=== PATIENT | female | born 1970 | race Caucasian/White ===

== ENCOUNTER 2024-12-22 07:15 | Day surgery (SDC) | payer OTHER ==
[~2024-12-22] VITALS: Ht 167.6 cm; Wt 86.4 kg
[~2024-12-22 07:15] MED LIST: ALLEGRA ALLERGY60 MG PO; ESTRADIOL1 EA10 TD; IBLOOD GLUCOSE TEST STRIP 1 EA TEST VI PRN; LACTATED RINGER'S 1,000 ML IV SCH; LIDOCAINE HCL 1% 5 ML SDV INJ ONE; MIDAZOLAM HCL 5 MG/5 ML VIAL IV PRN; NASONEX17 GM; NORCO 5-325 TA1 EACH PO; PAXIL20 MG PO; SINGULAIR10 MG PO; VALTREX1000 MG PO; fentaNYL citrate 100 MCG/2 ML VIAL IV PRN
[2024-12-22] MEDS ORDERED: CLOBETASOL 0.0560 G1 (07:33)
[2024-12-22 07:41] VITALS: BP 117/58
--- NOTE | 2024-12-22 07:50 | NUR ---
AT HOME 5 MINUTES AWAY, TO BE CALLED.
[2024-12-22] MEDS ORDERED: MIDAZOLAM HCL 5 MG/5 ML VIAL ONE (08:21)
[2024-12-22] MEDS ORDERED: fentaNYL citrate 100 MCG/2 ML VIAL ONE (08:21)
[2024-12-22 10:03] LABS: EOSINOPHILS 3.6 % (0-6); HEMATOCRIT 40.8 % (35.0-50.0); MCH 32.2 (27-36); MCHC 34.4 g/dl (30-36); MCV 93.5 fl (81-99); MONOCYTES 7.4 % (0-12); PLATELET COUNT 213 K/uL (140-440); RBC 4.36 M/ul (4.3-5.7); RDW 12.7 (10.5-15.0)
[2024-12-22 10:06] VITALS: BP 125/59
--- NOTE | 2024-12-22 10:12 | NUR ---
12/22/24 1012 Martha Zuniga 0931 PT ARRIVED IN PACU SLEEPY. ABD SOFT AND PASSING FLATUS. 0945 DR AT BEDSIDE AND LABS DRAWN. 1000 SITTING AT BEDSIDE SIPPING ON WATER. 1010 GETTING DRESSED WITH STAND BY ASSIST.
[2024-12-22 10:18] LABS: ALBUMIN 3.6 g/dL (3.4-5.0); ALBUMIN/GLOBULIN RATIO 1.38 (1.1-2.4); ANION GAP 10.9 (7-21); BILIRUBIN, TOTAL 0.5 mg/dL (0.2-1.0); CALCIUM 8.3 mg/dL (8.5-10.1); CREATININE, SERUM 0.8 mg/dL (0.55-1.02); POTASSIUM 3.9 mmol/L (3.5-5.1); PROTEIN, TOTAL 6.2 g/dL (6.4-8.2)
[2024-12-23 02:55] LABS: CARCINOEMBRYONIC ANTIGEN 7.8 ng/mL (<=3.8)
--- NOTE | 2024-12-23 14:12 | OR ---
[facility] [address], [place] [address] Signed DATE OF OPERATION: 12/22/2024 SURGEON: Zurdo Thakkar MD PREOPERATIVE DIAGNOSIS: Colon screening. POSTOPERATIVE DIAGNOSES: 1. 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 2. Multiple polyps. PROCEDURES: Total colonoscopy to cecum with cold snare polypectomy x3 and cold morcellation polypectomy x6 and biopsy of rectosigmoid neoplasm with application of spot endoscopic tattoo dye and application of clip. ANESTHESIA: Intravenous sedation; fentanyl 100 mcg and Versed 10 mg. INDICATION: This 54-year-old white woman is a patient of Dr. Rito Graves. She is referred for screening colonoscopy on the basis of her age. She has no family history of colon cancer and no current symptoms of bleeding, diarrhea, or constipation. She understands the risk of colonoscopy including but not limited to bleeding, infection, and perforation and wished to proceed. FINDINGS: A probable malignant neoplasm was noted at the rectosigmoid at approximately 10 cm from the anal verge. In addition, there were multiple polyps, one at the rectosigmoid, one in the cecum, two at the hepatic flexure, one in the transverse colon, and one in the right colon. All were excised completely. The neoplasm was biopsied and marked with endoscopic tattoo technique and hemoclip to allow for good visualization on the imaging study. DESCRIPTION OF PROCEDURE: The patient was brought to the surgical endoscopy suite and placed in the lateral decubitus position, given intravenous sedation to the point of slurred speech and nystagmus. Digital rectal examination was normal. An Olympus video colonoscope was passed in the rectum and manipulated throughout the Electronically Signed By: ZURDO THAKKAR MD 12/23/24 1412 PATIENT NAME: MCKAYLA GARCIA OPERATIVE REPORT DATE OF : 74 REPORT #: [id number] PHYSICIAN: ZURDO THAKKAR MD PCP: RITO GRAVES MD REPORT IS CONFIDENTIAL AND NOT TO BE RELEASED WITHOUT AUTHORIZATION [facility] [address], [place] [address] Signed colon ultimately intubating the cecum itself. The ileocecal valve and appendiceal orifice were normal. A small polyp was noted at the cecum, which was excised with cold snare technique. It was withdrawn and passed for pathology. Further withdrawal showed another polyp in the mid ascending colon similarly excised. Withdrawal to the hepatic flexure showed two small polyps, one excised with cold snare technique, the other with cold morcellation technique. Withdrawal showed another small polyp at the transverse colon similarly excised with cold morcellation technique. Further withdrawal showed no sign of diverticular change of the left colon and sigmoid. In the distal sigmoid and rectosigmoid, a small polyp was noted, this was excised with cold morcellation technique. Upon withdrawal to approximately 10 to 12 cm from the anal verge was an ulcerated umbilicated neoplasm though soft, quite likely represents malignancy. Biopsies were taken of this. Additionally, Endo micheal tattoo dye was used to micheal the area anticipating probable neoadjuvant chemoradiation therapy. In addition, a hemoclip was applied to allow for imaging accuracy postoperatively. The scope was removed after retroflexed view was undertaken. Digital rectal examination showed the lesion to be palpable with extreme extension of the finger into the anal canal less reassuring that most likely a sphincter preserving resection can be undertaken at some point. MD MARISA Aj/MODL /[id number] cc: Rito Graves MD Copies: RITO GRAVES MD ~ Electronically Signed By: ZURDO THAKKAR MD 12/23/24 1412 PATIENT NAME: MCKAYLA GARCIA ANN OPERATIVE REPORT DATE OF : 74 REPORT #: [id number] PHYSICIAN: ZURDO THAKKAR MD PCP: RITO GRAVES MD REPORT IS CONFIDENTIAL AND NOT TO BE RELEASED WITHOUT AUTHORIZATION
--- NOTE | 2024-12-25 14:02 | PATH ---
[facility] [address] [place] [address] Signed THIS IS AN ADDENDUM REPORT SPECIMEN(S): A HEPATIC FLEXURE COLON POLYP SPECIMEN(S): B CECUM COLON POLYP SPECIMEN(S): C ASCENDING COLON POLYP SPECIMEN(S): D TRANSVERSE COLON POLYP SPECIMEN(S): E HEPATIC FLEXURE COLON POLYPS SPECIMEN(S): F RECTOSIGMOID POLYP SPECIMEN(S): G COLON BIOPSY AT 10 CM SPECIMEN SOURCE: A. HEPATIC FLEXURE COLON POLYP B. CECUM COLON POLYP C. ASCENDING COLON POLYP D. TRANSVERSE COLON POLYP E. HEPATIC FLEXURE COLON POLYPS F. RECTOSIGMOID POLYP G. COLON BIOPSY AT 10 CM CLINICAL HISTORY: Pre-: Initial screening colonoscopy. Post: Mid rectal cancer, multiple polyps. FINAL PATHOLOGIC DIAGNOSIS: A. Colon, hepatic flexure, polypectomy: - Tubular adenoma B. Cecum, polypectomy: - Tubular adenoma C. Colon, ascending, polypectomy: - Tubular adenoma D. Colon, transverse, polypectomy: - Tubular adenoma E. Colon, hepatic flexure, polypectomies: - Tubular adenomas (2 fragments) F. Colon, rectosigmoid, polypectomy: - Tubular adenoma G. Colon, 10 cm, biopsy: - Moderately differentiated adenocarcinoma, see comment COMMENT: For part G, testing for microsatellite instability by immunohistochemistry has been ordered and will be reported in an addendum. PATIENT NAME: MCKAYLA BOWSER PATHOLOGY DATE OF : 74 REPORT #: [id number] PHYSICIAN: PABLO PATHOLOGY PCP: RITO FOLEY MD REPORT IS CONFIDENTIAL AND NOT TO BE RELEASED WITHOUT AUTHORIZATION [facility] [address] [place], [place] [address] Signed A diagnostic alert is initiated by Dr. Nguyen on 12/24/2024. As part of [facility]' Quality Improvement Program, this case was reviewed by another member of our pathology staff. BRP MICROSCOPIC EXAMINATION: Histologic sections of all submitted blocks are examined by light microscopy. These findings, together with the gross examination, support the pathologic diagnosis. GROSS DESCRIPTION: A. The specimen, labeled and designated "Niels, Katey, hepatic flexure colon polyp," is received in formalin and consists of three caballero soft tissue fragments, ranging from 0.2-0.4 cm. Entirely submitted in (A1). B. The specimen, labeled and designated "Niels, Katey, cecum colon polyp," is received in formalin and consists of one caballero soft tissue fragment, 0.7 cm. Entirely submitted in (B1). C. The specimen, labeled and designated "Katey Bowser, ascending colon polyp," is received in formalin and consists of two caballero soft tissue fragments, ranging from 0.4-0.5 cm. Entirely submitted in (C1). D. The specimen, labeled and designated "Niels, J, transverse colon polyp," is received in formalin and consists of one caballero soft tissue fragment, 0.8 cm. Entirely submitted in (D1). E. The specimen, labeled and designated "Bowser, J, hepatic flexure colon polyps," is received in formalin and consists of two caballero soft tissue fragments, ranging from 0.2-0.3 cm. Entirely submitted in (E1). F. The specimen, labeled and designated "Niels, J, rectosigmoid polyp," is received in formalin and consists of one caballero soft tissue fragment, 0.6 cm. Entirely submitted in (F1). G. The specimen, labeled and designated "Katey Bowser, colon biopsy at 10 cm," is received in formalin and consists of three caballero soft tissue fragments, ranging from 0.2-0.4 cm. Entirely submitted in (G1). AB (under the direct supervision of a pathologist) The Gross Description was prepared using a voice recognition system. The report was reviewed for accuracy; however, sound-alike word errors, addition and/or deletions may occur. If there is any question about this report, please contact Client Services. ADDITIONAL NOTES: PATIENT NAME: MCKAYLA BOWSER PATHOLOGY DATE OF : 74 REPORT #: [id number] PHYSICIAN: PABLO SANCHEZ PCP: RITO FOLEY MD REPORT IS CONFIDENTIAL AND NOT TO BE RELEASED WITHOUT AUTHORIZATION [address] [address] Signed Immunohistochemical and/or in situ hybridization studies if performed in this case included appropriate positive controls that reacted as expected. This test was developed and its performance characteristics determined by [facility]. It has not been cleared or approved by the U.S. Food and Drug Administration. The FDA has determined that such clearance or approval is not necessary. This test is used for clinical purposes. It should not be regarded as investigational or for research. [facility] is certified under the Clinical Laboratory Improvement Amendments of 1988 (CLIA) as qualified to perform high complexity clinical laboratory testing. PERFORMING LABORATORY: Technical component was performed by [facility], [address] [place] [id number] (CLIA# [id number]). Professional interpretation was performed by [address] [address] (CLIA#: [id number]). ADDITIONAL NOTES: Immunohistochemical and/or in situ hybridization studies if performed in this case included appropriate positive controls that reacted as expected. This test was developed and its performance characteristics determined by [facility]. It has not been cleared or approved by the U.S. Food and Drug Administration. The FDA has determined that such clearance or approval is not necessary. This test is used for clinical purposes. It should not be regarded as investigational or for research. [facility] is certified under the Clinical Laboratory Improvement Amendments of 1988 (CLIA) as qualified to perform high complexity clinical laboratory testing. Professional interpretation was performed by [address] [address] (CLIA#: [id number]). REASON FOR ADDENDUM: To add results of additional testing ADDENDUM PATHOLOGIC DIAGNOSIS: Colon and Rectum Biomarker Reporting Template RESULTS Mismatch Repair Immunohistochemistry (IHC) Testing for Mismatch Repair (MMR) Proteins: Background nonneoplastic tissue / internal control with intact nuclear expression PATIENT NAME: MCKAYLA BOWSER PATHOLOGY DATE OF : 74 REPORT #: [id number] PHYSICIAN: PABLO SANCHEZ PCP: RITO FOLEY MD REPORT IS CONFIDENTIAL AND NOT TO BE RELEASED WITHOUT AUTHORIZATION [facility] [address] [place] [id number] Signed MLH1 Result: Intact nuclear expression MSH2 Result: Intact nuclear expression MSH6 Result: Intact nuclear expression PMS2 Result: Intact nuclear expression IHC Interpretation: No loss of nuclear expression of MMR proteins: low probability of MSI-H BRP Diagnostician: Liam Nguyen MD Pathologist Electronically Signed 12/25/2024 Copies: ~ PATIENT NAME: MCKAYLA BOWSER ANN PATHOLOGY DATE OF : 74 REPORT #: [id number] PHYSICIAN: PABLO PATHOLOGY PCP: RITO FOLEY MD REPORT IS CONFIDENTIAL AND NOT TO BE RELEASED WITHOUT AUTHORIZATION
== END 2024-12-22 10:16 | disposition home or self-care (01) ==
LOC: OPS 07:15 → DS 07:16 → OPS 08:30
PROVIDERS: ATTEND Surgery
PROC: 3E0H8KZ Introduction of Other Diagnostic Substance into Lower GI, Via Natural or Artificial Opening Endoscopic (ICD-10-PCS; 2024-12-22)
PROC: 0DBE8ZZ Excision of Large Intestine, Via Natural or Artificial Opening Endoscopic (ICD-10-PCS; principal; 2024-12-22 08:30)
DX: Z12.11 Encounter for screening for malignant neoplasm of colon (principal); D12.7 Benign neoplasm of rectosigmoid junction; D12.2 Benign neoplasm of ascending colon; D12.0 Benign neoplasm of cecum; D12.3 Benign neoplasm of transverse colon; C19 Malignant neoplasm of rectosigmoid junction; Z78.0 Asymptomatic menopausal state; Z90.49 Acquired absence of other specified parts of digestive tract; K21.9 Gastro-esophageal reflux disease without esophagitis; G47.30 Sleep apnea, unspecified; E66.9 Obesity, unspecified; Z68.30 Body mass index [BMI] 30.0-30.9, adult; Z88.1 Allergy status to other antibiotic agents; Z88.5 Allergy status to narcotic agent; Z79.899 Other long term (current) drug therapy
CPT/HCPCS: 36415; 80053; 82378; 85025; 99153; G0500; J2250; J3010; J7121

== ENCOUNTER 2025-01-14 16:40 | Inpatient (IN) | payer OTHER ==
[~2025-01-14] VITALS: Ht 167.6 cm; Wt 84.1 kg
[~2025-01-14 16:40] MED LIST changes: +CLOBETASOL PROP15 G3 TOP; -IBLOOD GLUCOSE TEST STRIP 1 EA TEST VI PRN; -LACTATED RINGER'S 1,000 ML IV SCH; -LIDOCAINE HCL 1% 5 ML SDV INJ ONE; -MIDAZOLAM HCL 5 MG/5 ML VIAL IV PRN; -fentaNYL citrate 100 MCG/2 ML VIAL IV PRN
[2025-01-21] MEDS ORDERED: ALLEGRA ALLERG180 MG PO (08:30)
[2025-01-21 08:37] VITALS: BP 104/62
[2025-01-27] VITALS (7 sets, daily range): BP systolic 102–125; BP diastolic 49–69
[2025-01-27] MEDS ORDERED: LACTATED RINGER'S 1,000 ML IV SCH ×2 (05:00→13:45)
[2025-01-27] MEDS ORDERED: IBLOOD GLUCOSE TEST STRIP 1 EA TEST VI PRN ×2 (07:00→11:30)
[2025-01-27] MEDS ORDERED: HEParin SOD (PORCINE) 5,000 UNIT/ML SDV SUB-Q SCH (07:00)
[2025-01-27] MEDS ORDERED: LIDOCAINE HCL 1% 5 ML SDV INJ ONE (07:00)
[2025-01-27] MEDS ORDERED: CEFAZOLIN SODIUM 2 GM/20 ML SYR IV SCH ×2 (07:00→14:00)
[2025-01-27] MEDS ORDERED: metroNIDAZOLE/SODIUM CHLORIDE 500 MG/100 ML PIGGYBACK IV SCH ×2 (07:00→14:00)
[2025-01-27] MEDS ORDERED: fentaNYL citrate 100 MCG/2 ML VIAL ONE (08:31)
[2025-01-27] MEDS ORDERED: dexmedeTOMIDine HCl 200 MCG/2 ML VIAL ONE (08:32)
[2025-01-27] MEDS ORDERED: DEXAMETHASONE SOD PHOS 4 MG/ML VIAL ONE ×2 (08:32→12:50)
[2025-01-27] MEDS ORDERED: KETAMINE in NS 50 MG/5 ML SYR ONE ×2 (08:32→12:17)
[2025-01-27] MEDS ORDERED: LIDOCAINE HCL 2% 5 ML SDV ONE ×4 (08:32→12:18)
[2025-01-27] MEDS ORDERED: ondansetron HCL 4 MG/2 ML VIAL ONE (08:32)
[2025-01-27] MEDS ORDERED: ROCURONIUM BROMIDE 50 MG/5 ML SYR ONE ×3 (08:32→12:16)
[2025-01-27] MEDS ORDERED: MAGNESIUM SULFATE 1 GM/2 ML VIAL ONE ×2 (08:32→10:18)
[2025-01-27] MEDS ORDERED: propofoL 200 MG/20 ML VIAL ONE (08:32)
[2025-01-27] MEDS ORDERED: ACETAMINOPHEN 1,000 MG/100 ML VIAL ONE (08:33)
[2025-01-27] MEDS ORDERED: SODIUM CHLORIDE 0.9% 40 ML IV ONE ×4 (08:34→12:49)
--- NOTE | 2025-01-27 09:13 | NUR ---
PT TOOK NEOMYACIN 500MG AT 2PM, 7PM AND 11PM YESTERDAY (01/26/25) SHE ALSO TOOK FLAGYL 250MG AT 2PM,7PM AND 11PM YESTERDAY (01/26/25) SHE ALSO DID A BOWEL PREP YESTERDAY (01/26/25)
[2025-01-27] MEDS ORDERED: ePHEDrine sulfate 50 MG/ML AMP ONE (09:51)
[2025-01-27] MEDS ORDERED: HYDROmorphone HCL 1 MG/ML SYR IV PRN (11:30)
[2025-01-27] MEDS ORDERED: ondansetron HCL 4 MG/2 ML VIAL IV PRN ×2 (11:30→13:45)
[2025-01-27] MEDS ORDERED: fentaNYL citrate 50 MCG/ML SDV IV PRN (11:30)
[2025-01-27] MEDS ORDERED: droPERidol 5 MG/2 ML VIAL IV PRN (11:30)
[2025-01-27] MEDS ORDERED: NALOXONE HCL 0.4 MG SYR IV PRN (11:30)
[2025-01-27] MEDS ORDERED: KETOROLAC TROMETHAMINE 30 MG/ML VIAL IV PRN ×2 (11:30→13:45)
[2025-01-27] MEDS ORDERED: Ropivacaine HCl 0.5% 30 ML VIAL ONE (12:49)
[2025-01-27] MEDS ORDERED: SUGAMMADEX SODIUM 200 MG/2 ML ML ONE (12:49)
[2025-01-27] MEDS ORDERED: MORPHINE SULFATE 10 MG/ML VIAL IV PRN (13:45)
[2025-01-27] MEDS ORDERED: FAMOTIDINE 20 MG/ 2 ML VIAL IV SCH (13:48)
--- NOTE | 2025-01-27 14:07 | NUR ---
01/27/25 1407 Sheets,[place] 1334 PT ARRIVED TO PACU ON 6L VIA MASK, PT EYES OPEN LOOKING AROUND ROOM. RESP EVEN AND UNLABORED.
--- NOTE | 2025-01-27 15:14 | NUR ---
Patient to the medical floor. Patient arrived to unit alert and oriented, she is notably drowsy. Patient is on 2L oxygen per nc, sp02 93%. Vital signs are stable. Patient reports tolerable pain. Midline Abdominal dressing noted, drain to LLQ. Patient denies nausea. IV fluids/abx started per order. Patient's at bedside. Patient oriented to room and call light.
--- NOTE | 2025-01-27 15:29 | NUR ---
PATIENT IN BED AT THIS TIME. MITERING MACHINE OPERATOR WENT INTO PATIENTS ROOM FOR HOURLY ROUNDS. CALL LIGHT WITHIN REACH, NO FURTHER NEEDS AT THIS TIME.
[2025-01-27] MEDS ORDERED: SEVOFLURANE 250 ML BTL INH ONE (15:56)
--- NOTE | 2025-01-27 16:04 | NUR ---
Patient resting, easily wakes to verbal stimuli. Patient continues to report tolerable pain. Abdominal dressing unchanged. IV fluids patent. Vitals stable, sp02 93% on 2l per nc.
--- NOTE | 2025-01-27 17:10 | NUR ---
Patient reporting 6/10 abdominal pain. Admin morphine 4mg iv at this time.
--- NOTE | 2025-01-27 17:57 | NUR ---
PATIENT IN BED AT THIS TIME. RUBBER PRINTING MACHINE OPERATOR CHARTED VITALS AND I&O'S. CALL LIGHT WITHIN REACH, NO FURTHER NEEDS AT THIS TIME.
--- NOTE | 2025-01-27 19:30 | NUR ---
REPORT RECEIVED FROM DAY SHIFT RN. PT LYING IN BED ALERT AND ORIENTED. DENIES NEEDS. WHITE BOARD UPDATED. CALL LIGHT IN REACH.
--- NOTE | 2025-01-27 21:53 | NUR ---
EVENING ASSESSMENT COMPLETE. SCHEDULED MEDS ADMIN PER EMAR. PT REPORTS ABD/LOW BACK PAIN 03/10. PRN FOR PAIN ADMIN PER EMAR. PT WITH APPROX 25 ML GREEN EMESIS. PRN FOR N/V GIVEN. MIDLINE ABD DRESSING CDI. BOWEL TONES HYPOACTIVE. PT DENIES FLATUS. CLARICE DRAIN LLQ WITH SEROSANG DRAINAGE. DRESSING CDI. SCD'S/CPOX IN PLACE. 1L/NC IN PLACE. SpO2 MID 90'S. PT DENIES QUESTIONS OR CONCERNS. CALL LIGHT IN REACH.
--- NOTE | 2025-01-27 23:08 | NUR ---
PT RESTING WITH EYES CLOSED. AWAKENS EASILY. PT OOB TO AMB AROUND THE BED AND BACK. BENSON WELL. SMALL AMOUNT SEROSANG DRAINAGE NOTED FROM DRAIN INSERTION SITE. DRESSING REINFORCED. DRAIN TUBING STRIPPED. DRAIN SECURED TO PT GOWN. NO FURTHER NEEDS. CALL LIGHT IN REACH.
--- NOTE | 2025-01-27 23:54 | NUR ---
PT RESTING IN BED WITH EYES CLOSED. RESPIRATIONS EVEN. SpO2 92% ON RA. HR 70'S.
[2025-01-28] VITALS (11 sets, daily range): BP systolic 98–114; BP diastolic 38–54
--- NOTE | 2025-01-28 02:25 | NUR ---
PT RESTING WITH EYES CLOSED. AWAKENS EASILY. VS AND I&O OBTAINED. PT OOB TO AMB AROUND BED AND BACK WITH 1PA. BACK TO BED, BENSON WELL. PT REPORTS ABD/LOW BACK PAIN 01/08. PRN FOR PAIN ADMIN PER EMAR. BOWEL TONES ACTIVE. PT DENIES FLATUS. ABD DRESSING CDI. CPOX IN PLACE. PT ON RA. FRESH CLEAR LIQUIDS PROVIDED. NO FURTHER NEEDS. CALL LIGHT IN REACH.
--- NOTE | 2025-01-28 04:21 | NUR ---
PT RESTING IN BED WITH EYES CLOSED. RESPIRATIONS EVEN. SpO2 96% ON RA. HR 70'S.
[2025-01-28 05:24] LABS: BASOPHILS 0.2 % (0-2); EOSINOPHILS 0.4 % (0-6); HEMATOCRIT 37.5 % (35.0-50.0); LYMPHOCYTES 5.7 % (24-44); MCH 31.6 (27-36); MCHC 34.6 g/dl (30-36); MCV 91.3 fl (81-99); MONOCYTES 5.2 % (0-12); NEUTROPHILS 88.5 % (39-80); PLATELET COUNT 240 K/uL (140-440); RBC 4.11 M/ul (4.3-5.7); RDW 12.8 (10.5-15.0)
[2025-01-28 05:48] LABS: ALBUMIN 3.1 g/dL (3.4-5.0); ALBUMIN/GLOBULIN RATIO 1.15 (1.1-2.4); ANION GAP 11.4 (7-21); BILIRUBIN, TOTAL 0.4 mg/dL (0.2-1.0); BUN/CREATININE RATIO 11.68 (6.0-28.6); CALCIUM 7.8 mg/dL (8.5-10.1); CREATININE, SERUM 0.77 mg/dL (0.55-1.02); POTASSIUM 4.4 mmol/L (3.5-5.1); PROTEIN, TOTAL 5.8 g/dL (6.4-8.2)
[2025-01-28 05:52] LABS: SMEAR REVIEW BLOOD SEE COMMENTS
--- NOTE | 2025-01-28 05:57 | NUR ---
LAB IN FOR MORNING DRAW. VS AND I&O OBTAINED. BARON PATENT WITH QS YELLOW URINE. CLARICE LLQ WITH 8ML SEROSANG DRAINAGE. PRN FOR N/V ADMIN PRIOR TO ABX ADMIN PER PT REQUEST. PT BECAME NAUSEOUS DESPITE PRN. NAUSEA RESOLVED WITHOUT EMESIS. NO C/O PAIN AT THIS TIME. PT DENIES FURTHER NEEDS. CALL LIGHT IN REACH.
--- NOTE | 2025-01-28 07:50 | NUR ---
Patient awake, alert and oriented x4, no acute distress. Patient reports nausea with IV medication admin. Patient reports tolerable pain, 4/10. Abdominal dressing unchanged, CDI. LLQ nader drain closed to suction, serosang drainage.
--- NOTE | 2025-01-28 07:59 | NUR ---
ALERT AND ORIENTED IN BED. SPOUSE AT BEDSIDE. PATIENT DEMOGRAPHICS VERIFIED. LIVES IN HOUSE. 1 STEP TO GET INSIDE. HAS RAILS AROUND TOILET. NO OTHER DME. DRIVES AT BASELINE, SPOUSE WILL PROVIDE TRANSPORT AT ME. DENIES FINANCIAL HARDSHIP AT THIS TIME. PLANS TO RETURN HOME WHEN MEDICALLY CLEARED. DENIES CM NEEDS AT THIS TIME.
--- NOTE | 2025-01-28 09:51 | NUR ---
UR CLINICAL REVIEW: [facility] REVIEW MEET INPT FOR BOWEL RESECTION DUE TO [facility] INPT 01/27/25 @ 9906 ORDER MATCHES REG CLINICAL FAXED TO [facility] FOR AUTH REVIEW DISCHARGE TO HOME WHEN STABLE 01/30/25
--- NOTE | 2025-01-28 09:54 | NUR ---
Patient reports 7/10 abdominal pain. Admin toradol 30mg slow iv push, pt tolerated medication admin well.
--- NOTE | 2025-01-28 10:05 | NUR ---
PATIENT IS IN HER BED AT THIS TIME, REFUSED A WASH CLOTH AND WARM BLANKET, INFORMATION SECURITY RISK ANALYST GOT SOME FRESH ICE WATER AND ICE CHIPS FOR PATIENT. CALL LIGHT WITH IN REACH AND NOTHING ELSE NEEDED AT THIS TIME. PATIENT WANTS TO REST AND IS NOT FEELING VERY WELL.
--- NOTE | 2025-01-28 11:00 | NUR ---
PT NOT AVAILABLE FOR VISIT. PROVIDED PRAYER.
--- NOTE | 2025-01-28 11:03 | NUR ---
PATIENT IN CHAIR AT THIS TIME. THIS HOGSHEAD OPENER WALKED ONE LAP WITH PATIENT, AND MOVED PATIENT TO CHAIR AFTER WALK. CALL LIGHT WITHIN REACH, NO FURTHER NEEDS.
--- NOTE | 2025-01-28 11:03 | OR ---
[facility] [address] [facility] [place], [place] [address] Signed DATE OF OPERATION: 01/27/2025 SURGEON: Zurdo Thakkar MD PREOPERATIVE DIAGNOSES: 1. 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 2. Obesity. POSTOPERATIVE DIAGNOSES: 1. 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 2. Obesity. PROCEDURES: 1. Rigid proctoscopy. 2. Low anterior resection with total mesorectal excision. 3. Side-to-end (Enriquez) coloproctostomy. ANESTHESIA: General endotracheal, Yaniv Gasca, LABELS MOLDER. OYSTER GROWER: Luis Miguel Lazcano RN. INDICATION: This 54-year-old woman is a patient of Dr. Zaid Graves and underwent colonoscopy for screening by me several weeks ago where she was found to have several polyps of the colon. Most importantly an obvious rectal carcinoma approximately 10 cm from the anal verge. Clinically, this was at the limit of index finger examination. A preoperative CEA is elevated at 7.0. CT scan shows no sign of regional or distant metastatic disease and MRI shows no sign of peripelvic fat with suspicious lymph nodes. Under the circumstances of the particular situation, primary low anterior resection without neoadjuvant chemoradiation therapy has been recommended. Micro satellite instability testing is normal. The patient and her understand the risk of bleeding, infection, anastomotic failure, ureteral injury, possibility of local or distant recurrence and need for additional treatment should metastatic disease be found within the peripelvic lymph nodes as well as other unforeseen complications. Understanding this, she wishes to proceed. Electronically Signed By: ZURDO THAKKAR MD 01/28/25 1103 PATIENT NAME: MCKAYLA GARCIA OPERATIVE REPORT DATE OF : 74 REPORT #: [id number] PHYSICIAN: ZURDO THAKKAR MD PCP: RITO GRAVES MD REPORT IS CONFIDENTIAL AND NOT TO BE RELEASED WITHOUT AUTHORIZATION [facility] [address] [place], [place] [address] Signed FINDINGS: There is no sign of ascites or carcinomatosis. The liver was palpably and visibly normal. There was apparent surgical absence of the appendix. There was no evidence of the neoplasm above the peritoneal reflection and endoscopic tattoo marking that confirmed the lesion to be in the anterior right aspect of the rectum as expected. Resection was undertaken beneath the subtle but palpable lesion with a margin of 2 cm initially and additional resection margin of the rectal stump. A side-to-end coloproctostomy was accomplished in a tension-free manner. A total mesorectal excision approach was used including wide resection of the lateral fat as well as the rectal mesentery centrally. A drain was placed in the area of the sacral hollow at conclusion and the sigmoid mesenteric defect secured in the medial aspect. There were no complications and blood loss was 25 mL or so. DESCRIPTION OF PROCEDURE: The patient was brought to the operating room and given a general endotracheal anesthetic. She received full and complete bowel prep including oral antibiotics. Preoperative antibiotic heparin was given subcutaneously as were sequential compression device stockings. The patient was affixed to the table to allow for dropping of the lower aspect to allow for rigid proctoscopy. A nurse assisted elevation of the legs was undertaken. Digital rectal examination performed which was normal and rigid proctoscopy performed. There appeared to be an excellent prep. The lesion including the clip that was placed at the original resection was in place and was approximately 10 cm from the anal verge itself. This seemed higher than I had recalled, but was a most welcome level for the lesion. The legs were placed to the midline. The abdomen was clipped and prepared with a chlorhexidine solution and draped sterilely. An incision was made cephalad to the umbilicus extending to the symphysis pubis. Dissection carried through the thick abdominal wall pannus with sharp electrocautery dissection. The abdomen was entered without problem showing no sign of ascites or carcinomatosis. A Bookwalter retractor was affixed to the table. Palpation of the liver showed no sign of palpable abnormality and it was smooth. There was no sign of carcinomatosis. The omentum was laid on the upper abdomen under moist laparotomy pack and a Bookwalter retractor was affixed to the table allowing for access to the abdomen. Small bowel loops were gathered and packed to the right upper aspect and secured with laparotomy packs more fully. The patient was noted to be slightly hypotensive in the 70s and 80 level and Bookwalter retractor was adjusted showing no appreciable difference. Additional oxygen and some pressor agent was given and throughout the remaining operation, there was no issue with hypotension or hypoxemia. The bowel had been packed to the right side of the abdomen as previously noted. The sigmoid colon was placed on tension and using electrocautery, the white line of Toldt was incised in the distal descending colon and the sigmoid which was relatively redundant. Dissection was carried down to the sacral promontory area. Anteriorly she Electronically Signed By: ZURDO THAKKAR MD 01/28/25 1103 PATIENT NAME: MCKAYLA GARCIA OPERATIVE REPORT DATE OF : 74 REPORT #: [id number] PHYSICIAN: ZURDO THAKKAR MD PCP: RITO GRAVES MD REPORT IS CONFIDENTIAL AND NOT TO BE RELEASED WITHOUT AUTHORIZATION [address], [place] [address] Signed has undergone a hysterectomy. There was some fusion of the upper part of the rectum to the posterior aspect of the bladder and the vaginal cuff. Dissection was carried widely on the pelvic peritoneum on the left side initially identifying the ureter and staying clear of it. Using electrocautery fatty tissue was widely excised medial to the ureter. The ureter was encircled with the yellow vessel loop to keep in mind its position. Dissection was carried inferiorly and then anteriorly and laterally ultimately encountering the bladder cuff and rectal junction. At this point, the actual lesion was not palpable nor was the endoscopic tattoo micheal available for inspection. Dissection was carried into the left lateral pelvic sidewall and anteriorly a bit ultimately identifying some of the blue dye used for endoscopic marking. Dissection of a similar type was carried on the right side, incising the sigmoid mesentery to the sacral promontory and laterally around the pelvic rim. Specific identification at that point was not undertaken of the right ureter that was later identified and well out of harm's way. Dissection was carried laterally on the right side anteriorly to the bladder area. A fibrotic fused plane was noted between the posterior aspect of the bladder and the superior rectum and likely the vaginal cuff inferiorly. Dissection was carried meticulously around on each side and clips were used as necessary, further large vascular stocks laterally. Having that dissected a generous portion of the perirectal fat to maintain a wide resection. Attention was turned towards the sigmoid mesentery itself. This was incised vertically, taken down to the area of the sacral promontory and major vascular pedicle secured with clamps and ligation with 0 silk ties. The sacral hollow was dissected free, maintaining a total mesenteric excision approach and avoiding getting into the venous plexus of the sacrum itself. Dissection was carried posteriorly as far as possible down to the depths of the sacrum. Transection of the junction of the descending and sigmoid colon was undertaken with NICCI stapling device with more proximal colon packed cephalad. This allowed for more meticulous dissection deep into the pelvis. The tattoo micheal from the lesion itself could be identified and perirectal fat staining of dye noted as well. Wide resection was then undertaken anteriorly until the lesion that was soft but palpable identified. It appeared to be in the right anterior aspect. Wide resection was undertaken with a clinically negative margin of at least 2 to 3 cm. The dissection through the fat was taken to the rectal wall itself and a right angle bowel clamp applied. An additional clamp was applied proximally and using prostate scissors the mid rectum was transected transversely. The specimen was passed off the table and opened on the back table and found to have the offending neoplasm within the specimen with a contracted 1 cm distal margin. Margin was available on the rectal stump, it was grasped with a right angle clamp it was noted. The left colon was redundant enough and mobilized enough that no additional freeing from the splenic flexure was required. It laid completely tension free into the depths of the pelvis. The pelvis was isolated with two laparotomy packs and coloproctostomy Electronically Signed By: ZURDO THAKKAR MD 01/28/25 1103 PATIENT NAME: MCKAYLA GARCIA OPERATIVE REPORT DATE OF : 74 REPORT #: [id number] PHYSICIAN: ZURDO THAKKAR MD PCP: RITO GRAVES MD REPORT IS CONFIDENTIAL AND NOT TO BE RELEASED WITHOUT AUTHORIZATION [facility] [address] [place], [place] [address] Signed undertaken in a hand-sewn technique using interrupted 3-0 silk suture. Wide patency of the anastomosis was noted. A red rubber catheter was inserted into the anal canal and was submersion of the anastomosis under saline insufflation undertaken showing no sign of leakage. Isolating laparotomy packs were removed and the gown and gloves changed. Through a left lower quadrant stab incision, a 7 mm flat Anthony drain was placed and insinuated in the presacral space below the depth of the anastomosis itself. Hemostasis was found to be quite complete. Mesenteric defect of the sigmoid was reapproximated with a few interrupted 3-0 silk sutures on the right side without any special attention to the left side, particularly. Irrigation was undertaken with warm saline solution. Drains attached to bulb suction. Attention was then turned toward closure. Midline fascia was reapproximated with running #1 PDS suture in a bidirectional fashion. Subcutaneous tissue was irrigated after securing hemostasis and skin closed with running subcuticular 3-0 Vicryl. Steri-Strips were applied as was an Acticoat dressing. Drains attached to bulb suction. Thereafter, bilateral TAP blocks were performed and ultimately she was extubated and transferred to the recovery room in good condition having suffered no complication. Blood loss was less than 50 mL, more likely 25 mL. Sponge, needle, and instrument counts reported as correct x3. MD MARISA Aj/MODL /[id number] cc: Rito Graves MD Copies: RITO GRAVES MD ~ Electronically Signed By: ZURDO THAKKAR MD 01/28/25 1103 PATIENT NAME: MCKAYLA GARCIA OPERATIVE REPORT DATE OF : 74 REPORT #: [id number] PHYSICIAN: ZURDO THAKKAR MD PCP: RITO GRAVES MD REPORT IS CONFIDENTIAL AND NOT TO BE RELEASED WITHOUT AUTHORIZATION
[2025-01-28] MEDS ORDERED: HYDROmorphone HCL 1 MG/ML SYR IV PRN (11:30)
--- NOTE | 2025-01-28 14:00 | NUR ---
PATIENT IS IN BED AT THIS TIME, [employer] CHARTED VITALS AND I&O'S, IN ROOM, CALL LIGHT WITH IN REACH AND NOTHING ELSE NEEDED AT THIS TIME.
--- NOTE | 2025-01-28 14:26 | NUR ---
Patient reporting nausea and 7/10 abdominal pain. Admin zofran 4mg iv and dilaudid 1mg slow iv push-atient reporting increased nausea post admin. Hob elevated, cool compress provided for comfort. Patient's at bedside.
--- NOTE | 2025-01-28 19:10 | NUR ---
REPORT RECEIVED FROM ESTHELA HAYDEN. pt RESTING IN THE BED. BOARD UPDATED. pt RESQUEST TO GO TO THE BR TO FR[facility]EN. pt ASSISTED TO BR. pt DENIES ANY OTHER NEEDS AT THIS TIME. CALL LIGHT WITHIN REACH.
--- NOTE | 2025-01-28 19:56 | NUR ---
PT BACK IN BED FROM BATHROOM. PT ASSISTED WITH CLEAN GOWN AND VITALS AND I&O OBTAINED AND DOCUMENTED. BARON BAG EMPTIED. PT STATES NO FURTHER NEEDS AT THIS TIME. CALL LIGHT WITHIN REACH.
--- NOTE | 2025-01-28 20:55 | NUR ---
ASSESSMENT DONE. pt RESTING IN THE BED. PRN PAIN AND ANTINAUSEA MEDS ADMINISTERED. pt C/O 5/10 PAIN. pt C/O NAUSEA. SCHEDULED MEDS ADMINISTERED. pt DENIES ANY OTHER NEEDS AT THIS TIME. BARON CARE DONE. BARON EMPTIED. CALL LIGHT WITHIN REACH.
--- NOTE | 2025-01-28 22:59 | NUR ---
pt REASSESSED, pt DENIES ANY PAIN AND NUASEA AT THIS TIME. CALL LIGHT WITHIN REACH. pt DENIES ANY OTHER NEEDS AT THIS TIME. CALL LIGHT WITHIN REACH.
[2025-01-29] VITALS (9 sets, daily range): BP systolic 103–118; BP diastolic 46–62
--- NOTE | 2025-01-29 00:38 | NUR ---
pt RESTING IN THE BED. pt DENIES ANY NEEDS AT THIS TIME. CALL LIGHT WITHIN REACH.
--- NOTE | 2025-01-29 01:55 | NUR ---
IN RM TO HANG NEW BAG OF IVF. pt DENEIS ANY OTHER NEEDS AT THIS TIME. CALL LIGHT WITHIN REACH.
--- NOTE | 2025-01-29 04:26 | NUR ---
pt RESTING IN THE BED WITH EYES CLOSED. RR EVEN AND UNLABORED. CALL LIGHT WITHIN REACH.
--- NOTE | 2025-01-29 06:15 | NUR ---
in room to collect am vs and i&o's for primary rn bella. pump also cleared and room tidied. primary rn in room to administer prn pain/nausea medication. call light in reach.
--- NOTE | 2025-01-29 07:07 | NUR ---
REPORT RECEVIED FROM TRANSPLANTER JACKELYN GAN. PATIENT IS LYING IN BED WITH EYES CLOSED AND RESPIRATIONS ARE EVEN AND UNLABORED. CPOX AT BEDSIDE. CALL LIGHT AND PERSONAL BELONGINGS ARE WITHIN REACH.
--- NOTE | 2025-01-29 08:34 | NUR ---
PATIENT IS LYING IN BED WITH HOB ELEVATED AND SCDs IN PLACE. PATIENT GIVEN IV PEPCID AND REPORTED BASELINE NAUSEA. PATIENT RATES PAIN 2/10 IN ABDOMEN. PATIENT REPORTS FLATULENCE, STILL NO BOWEL MOVEMENT. PATIENT REQUESTED ICE AND AMBULATING IN THE [place]. WE MADE PLANS TO COME BACK LATER THIS MORNING TO HELP HER WALK. PATIENT DENIED FURTHER NEEDS AT THIS TIME. CALL LIGHT AND PERSONAL BELONGINGS ARE WITHIN REACH. LR CONTINUES TO INFUSE.
--- NOTE | 2025-01-29 08:47 | NUR ---
MED REC COMPLETE
--- NOTE | 2025-01-29 09:24 | NUR ---
PATIENT IS AMBULATING IN THE HALLWAY INDEPENDENTLY AT THIS TIME. PATIENT TOLERATING WELL. PATIENT WITH NO COMPLAINTS OF NAUSEA.
[2025-01-29] MEDS ORDERED: OXYCODONE HCL 5 MG TAB PO PRN (09:30)
--- NOTE | 2025-01-29 10:00 | NUR ---
PATIENT IS LYING IN BED WITH HOB ELEVATED AND THE LIGHTS OFF. PATIENT WITH EYES OPEN AND RESPIRATIONS ARE EVEN AND UNLABORED. LIGHTS TURNED ON UPON RN ENTERING THE ROOM. TWO GUESTS ARRIVED AT BEDSIDE TO VISIT THE PATIENT AND THEN LEFT AFTER A FEW MINUTES. FULL ASSESSMENT COMPLETE AND DOCUMENTED IN THE CHART. PATIENT IS ALERT AND ORIENTED TIMES FOUR. LAST BM WAS 01/27/25. PATIENT WITH A BARON CATHETER IN PLACE. LIGHT YELLOW URINE NOTED. JE AND BARON CARE COMPLETE. SCD'S IN PLACE. IV FLUSHED WITH 10 ML NORMAL SALINE. IV DRESSING IS CLEAN, DRY, AND INTACT. LR IS INFUSING AT 85 ML/HR. CARDIAC WITH NORMAL S1 AND S2 ON AUSCULTATION. NO EDEMA NOTED. RADIAL AND PEDAL PULSES ARE STRONG BILATERALLY. CAPILLARY REFILL IN THE UPPER AND LOWER EXTREMITIES IS LESS THAN 3 SECONDS. SENSATION INTACT WITH NO COMPLAINTS OF NUMBNESS OR TINGLING. PATIENT RATED PAIN 2/10 IN THE ABDOMEN BUT IS NOT REQUESTING ANYTHING FOR PAIN AT THIS TIME. PATIENT ADVANCED TO A FULL LIQUID DIET FOR LUNCH. BOWEL TONES ARE ACTIVE IN ALL FOUR QUADRANTS. MIDLINE INCISION DRESSING IS CLEAN, DRY, AND INTACT. LLQ CLARICE DRAIN DRESSING WITH DRY DRAINAGE NOTED. CLARICE DRAIN WITH SANGUINEOUS DRAINAGE NOTED. PATIENT IS ON ROOM AIR WITH THE CPOX AT BEDSIDE. LUNG SOUNDS ARE CLEAR THROUGHOUT. PATIENT STATED NO FURTHER NEEDS AT THIS TIME. CALL LIGHT AND PERSONAL BELONGINGS ARE WITHIN REACH.
--- NOTE | 2025-01-29 11:09 | NUR ---
JENELLE CALABRESE IS IN THE ROOM AT THIS TIME AND PROVIDING JE CARE AND BARON CARE. JENELLE CALABRESE REPORTS HAVING A BOWEL MOVEMENT TODAY. PATIENT AND JENELLE CALABRESE STATED NO FURTHER NEEDS AT THIS TIME.
--- NOTE | 2025-01-29 11:45 | NUR ---
INTO SEE PATIENT. PATIENT STATES SHE IS FEELING A BIT BETTER BUT NAUSEATED. PATIENT WILL GO HOME WITH WHEN MEDICALLY CLEARED. NO FUTHER CM NEEDS.
--- NOTE | 2025-01-29 12:13 | NUR ---
PATIENT IS LYING IN BED WOTH HOB ELEVATED. PATIENT IS EATING SOUP WITH THE LIGHTS ON. SHE STATED SHE WANTS THE LIGHTS OFF. PATIENT DENIES FURTHER NEEDS AT THIS TIME. TRAY AT BEDSIDE, CALL LIGHT AND PERSONAL BELONGINGS ARE WITHIN REACH.
--- NOTE | 2025-01-29 13:04 | NUR ---
PATIENT IS LYING IN BED WITH IV FLUID INFUSING. PATIENT IS REQUESTING PAIN MEDICATIONS AT THIS TIME. PATIENT REPORTS PAIN IN LOWER ABDOMEN, "4-5/10". PRIMARY NURSE, JONATHAN, NOTIFIED. PATIENT DENIES FURTHER NEEDS. CALL LIGHT AND PERSONAL BELONGINGS ARE WITHIN REACH.
--- NOTE | 2025-01-29 13:16 | NUR ---
PT NOT AVAILABLE FOR VISIT. PROVIDED PRAYER.
[2025-01-29] MEDS ORDERED: IBUPROFEN 600 MG TAB PO SCH (14:00)
[2025-01-29] MEDS ORDERED: ACETAMINOPHEN 500 MG TAB PO SCH (14:00)
--- NOTE | 2025-01-29 14:08 | NUR ---
PATIENT IS LYING IN BED WITH EYES CLOSED. PATIENT HAS EVEN AND UNLABORED RESPIRATIONS. CALL LIGHT AND PERSONAL BELONGINGS ARE WITHIN REACH. LR CONTINUES TO INFUSE.
--- NOTE | 2025-01-29 14:20 | NUR ---
PATIENT IS LYING IN BED WITH EYES CLOSED. PATIENT OPENED EYES WITH VERBAL STIMULI, RESPIRATIONS EVEN AND UNLABORED. FOCUSED ASSESSMENTS COMPLETE AND DOCUMENTED IN THE CHART. IV SITE WNL WITH NO SIGNS OF LEAKING OR INFILTRATION. PATIENT DENIES PAIN OR BURNING AT IV SITE. PATIENT RATES PAIN 2/10 IN LOWER ABDOMEN. PATIENT HAS ACTIVE BOWEL TONES AND REPORTS TENDERNESS. CLARICE DRAIN HAS A QUARTER-SIZED AMOUNT OF SANGENOUS DRAINAGE ON DRESSING. PATIENT'S MIDLINE INCISION IS CLEAN, DRY AND INTACT. PATIENT DENIES FURTHER NEEDS AT THIS TIME. CALL LIGHT AND PERSONAL BELONGINGS ARE WITHIN REACH.
--- NOTE | 2025-01-29 15:30 | NUR ---
PATIENT IS LYING IN BED WITH LIGHTS OFF. PATIENT REPORTS HAVING SOME NAUSEA BUT LESS PAIN. SHE RATES HER PAIN A 2/10. PATIENT REQUESTED ICE CHIPS. SHE DENIES NO FURTHER NEEDS AT THIS TIME. CALL LIGHT AND PERSONAL BELONGINGS ARE WITHIN REACH.
--- NOTE | 2025-01-29 15:46 | NUR ---
THIS MORING PATIENT WALKED ONE LAP AROUND MED SURG. BED LINENS CHANGED ALSO DID JE CARE AND BARON CARE AFTER SHE HAD A LIQUID BOWEL MOVEMENT IN BED.
--- NOTE | 2025-01-29 16:10 | NUR ---
PATIENT IS AMBULATING IN THE HALLWAYS WITH VISITOR AND JENELLE CALABRESE.
--- NOTE | 2025-01-29 16:17 | NUR ---
PATIENT AND I AND HER FAMILY MEMBER WALKED TWO LAPS AROUND MED SURG.
--- NOTE | 2025-01-29 16:20 | NUR ---
PATIENT ALSO THIS MORING AFTER BREAKFAST WALKED INTO THE BATHROOM TO WASH HER FACE AND BRUSH HER TEETH.
--- NOTE | 2025-01-29 17:02 | NUR ---
PATIENT IS LYING IN BED WITH HOB ELEVATED. PATIENT HAS ONE VISITOR IN THE ROOM AT THIS TIME. PATIENT HAS CALL LIGHT AND PERSONAL BELONGINGS WITHIN REACH.
--- NOTE | 2025-01-29 18:11 | NUR ---
PATIENT LYING IN BED WITH HOB ELEVATED. PATIENT IS REQUESTING MOTRIN FOR "3-4/10" PAIN. PRIMARY NURSE, EDMUND, NOTIFIED. SCHEDULED PAIN MEDICATIONS FOR 1999 WERE DISCUSSED. PATIENT STATED "I CAN WAIT UNTIL THEN." I TOLD HER DILAUDID WAS AVAILABLE IF SHE WANTED IT AND SHE STATED SHE DIDN'T WANT IT. PATIENT DENIES FURTHER NEEDS AT THIS TIME. CALL LIGHT AND PERSONAL BELONGINGS ARE WITHIN REACH. PATIENT HAS IV FLUIDS INFUSING. PATIENT IS SPEAKING WITH TWO VISITORS AT THIS TIME.
--- NOTE | 2025-01-29 19:15 | NUR ---
REPORT RECEIVED FROM EDMUND HAYDEN. BOARD UPDATED. pt DENIES ANY OTHER NEEDS AT THIS TIME. CALL LIGHT WITHIN REACH.
--- NOTE | 2025-01-29 20:15 | NUR ---
ASSESSMENT AND VITAL SIGNS DONE. BARON CARE DONE. SCHEDULED MEDS ADMINISTERED. MIDLINE, CDI. CLARICE DRAIN HAS MINIMAL SS DRAINAGE AROUND IT. WATER REFRESHED. IV ASSESSED, WNL. pt DENIES ANY OTHER NEEDS AT THIS TIME. CALL LIGHT WITHIN REACH.
[2025-01-29] MEDS ORDERED: FAMOTIDINE 20 MG TAB PO SCH (21:00)
--- NOTE | 2025-01-29 22:39 | NUR ---
CPOX CANCELLED, MCKAYLA 24 HOURS POST OP
--- NOTE | 2025-01-29 23:32 | NUR ---
pt RESTING IN THE BED WITH EYES CLOSED. RR EVEN AND UNLABORED. CALL LIGHT WITHIN REACH.
[2025-01-30] VITALS (9 sets, daily range): BP systolic 106–119; BP diastolic 42–66
--- NOTE | 2025-01-30 01:25 | NUR ---
pt RESTING IN THE BED EYES CLOSED. RR EVEN AND UNLABORED. CALL LIGHT WITHIN REACH.
--- NOTE | 2025-01-30 01:55 | NUR ---
pt RESTING IN THE BED. IN RM TO GIVE pt SCHEDULED MEDS pt REFUSED MEDS AT THIS TIME. pt DENIES ANY OTHER NEEDS AT THIS TIME. CALL LIGHT WITHIN REACH.
--- NOTE | 2025-01-30 03:45 | NUR ---
pt RESTING IN THE BED WITH EYES CLOSED. RR EVEN AND UNLABORED. CALL LIGHT WITHIN REACH.
--- NOTE | 2025-01-30 05:42 | NUR ---
NANOTECHNOLOGY ENGINEERING TECHNOLOGIST OBTAINED VITALS AND I&O. BARON EMPTIED. PT STATES NO NEEDS AT THIS TIME. CALL LIGHT WITHIN REACH.
--- NOTE | 2025-01-30 06:15 | NUR ---
ASSESSMENT AND VITAL SIGNS DONE. DINA DRAIN EMPTIED. pt DENIES ANY OTHER NEEDS AT THIS TIME. CALL LIGHT WITHIN REACH.
--- NOTE | 2025-01-30 07:05 | NUR ---
REPORT RECEIVED FROM INFORMATICS EDUCATOR JACKELYN GAN. PATIENT IS LYING IN BED WITH EYES CLOSED AND RESPIRATIONS ARE EVEN AND UNLABORED. CALL LIGHT AND PERSONAL BELONGINGS ARE WITHIN REACH.
--- NOTE | 2025-01-30 08:15 | NUR ---
PATIENT IS LYING IN BED WITH HOB ELEVATED. PATIENT ASSESSMENT COMPLETE AND DOCUMENTED. PATIENT IS ALERT AND ORIENTED TIMES FOUR. PATIENT HAS A FLAT AFFECT. PATIENT REPORTS A HEADACHE AND 4/10 HEAD AND ABDOMINAL PAIN. PATIENT HAS CLEAR LUNG SOUNDS THROUGHOUT. PATIENT HAS S1 AND S2 HEART SOUNDS AT A REGULAR RATE. PATIENT HAS STRONG RADIAL AND PEDAL PULSES. PATIENT HAS CAPILLARY REFILL OF LESS THAN 3 SECONDS IN ALL EXTREMITIES. PATIENT HAS NO EDEMA AND REPORTS NO NUMBNESS OR TINGLING. PATIENT REPORTS NAUSEA AND HAS ACTIVE BOWEL TONES. PATIENT REPORTS NO DISTENTION OR TENDERNESS IN HER ABDOMEN. IV SITE WAS FLUSHED WITH 10ML NS, NO SIGNS OF LEAKING OR INFILTRATION AT THIS TIME. PATIENT DENIED BURNING OR PAIN WITH FLUSHING. MORNING MEDICATIONS GIVEN AND PATIENT REPORTED NO FURTHER NEEDS. PRN ZOFRAN ALSO ADMINISTERED AT THIS TIME. MIDLINE INCISION DRESSING IN PLACE AT THIS TIME. DRESSING IS CLEAN DRY AND INTACT. PATIENT CONTINUES TO HAVE A CLARICE DRAIN IN THE LLQ OF HER ABDOMEN. THERE IS A QUARTER-SIZED SANGENOUS DRAINAGE ON THE DRESSING. THE DRESSING HAS NO CHANGE FROM YESTERDAY. THE DRAINAGE FROM THE CLARICE DRAIN IS LIMITED. BREAKFAST TRAY AT THE BEDSIDE, CALL LIGHT AND PERSONAL BELONGINGS ARE WITHIN REACH.
--- NOTE | 2025-01-30 09:05 | NUR ---
INTO SEE PATIENT. PATIENT WALKING AROUND THE HALLS. PATIENT STATES SHE IS DOING BETTER. PATIENT DENIES ANY CM NEEDS AT THIS TIME.
--- NOTE | 2025-01-30 09:09 | NUR ---
PATIENT IS AMBULATING IN THE HALLWAY INDEPENDENTLY AT THIS TIME. PATIENT IS TOLERATING WELL. PATIENT REPORTS PAIN IMPROVED AFTER RECEIVING THE SCHEDULED MOTRIN AND TYLENOL. LR CONTINUES TO INFUSE AT 85 ML/HR.
--- NOTE | 2025-01-30 09:13 | NUR ---
PT UP WALKING THE HALLS
--- NOTE | 2025-01-30 09:57 | NUR ---
UR CONCURRENT/CLINICAL REVIEW: MCG-PER MCG REVIEW MEET INPT FOR BOWEL RESECTION DUE TO ADENOCARCINOMA VARIANCE FOR DC MILESTONE ENTERED FOR CONTINUED DIFFICULTY TOLERATING PO INTAKE, IV FLUIDS, IV MEDICATION NEEDS [facility] INPT 01/27/25 @ 1350 ORDER MATCHES REG CLINICAL FAXED TO [facility] FOR AUTH REVIEW DISCHARGE TO HOME WHEN STABLE 02/02/25
--- NOTE | 2025-01-30 10:00 | NUR ---
JENELLE CHANGED PATIENTS BEDDING WHILE SHE WAS TAKING A FEW LAPS AROUND THE NURSES STATION. CLEANED ROOM A BIT, AND ASSISTED PATIENT BACK TO BED. CALL LIGHT WITH IN REACH AND NOTHING ELSE NEEDED AT THIS TIME.
--- NOTE | 2025-01-30 10:06 | NUR ---
PT TOOK TWO LAPS, WALKING AROUND THE MED SURG FLOOR PT REPORTED PAIN WAS TOLERABLE PT BACK IN BED CALL LIGHT WITHIN REACH NOTHING ELSE NEEDED AT THIS TIME
--- NOTE | 2025-01-30 10:34 | NUR ---
PATIENT IS LYING IN BED WITH HOB ELEVATED. PATIENT REPORTS HEADACHE STILL AND NO PAIN. PATIENT DENIES FURTHER NEEDS AT THIS TIME. CALL LIGHT AND PERSONAL BELONGINGS ARE WITHIN REACH.
--- NOTE | 2025-01-30 11:05 | NUR ---
PATIENT IS LYING IN BED WITH HOB ELEVATED. PATIENT HAS ONE VISITOR AT THIS TIME. PATIENT DENIES FURTHER NEEDS AT THIS TIME. CALL LIGHT AND PERSONAL BELONGINGS ARE WITHIN REACH.
--- NOTE | 2025-01-30 12:33 | NUR ---
PATIENT IS AMBULATING IN THE HALLWAY INDEPENDENTLY. PATIENT'S BARON CATHETER WAS REMOVED. 10ML OF FLUID WAS REMOVED FROM THE BALLOON. PATIENT TOLERATED WELL. PATIENT STATED THERE WAS A LITTLE DISCOMFORT WITH REMOVAL AND SAID SHE FELT LIKE SHE MAY NEED TO USE THE RESTROOM. PATIENT WITH NO FURTHER NEEDS AT THIS TIME.
[2025-01-30] MEDS ORDERED: AZITHROMYCIN250 MG PO (13:34)
--- NOTE | 2025-01-30 13:50 | NUR ---
PATIENT IS LYING IN BED WITH HOB ELEVATED. PATIENT DENIES NEEDS AT THIS TIME. CALL LIGHT AND PERSONAL BELONGINGS ARE WITHIN REACH.
--- NOTE | 2025-01-30 14:47 | NUR ---
PATIENT IS LYING IN BED WITH HOB ELEVATED. PATIENT'S IV FLUID PAUSED AND IV FLUSHED WITH 10ML NS. IV SITE IS SALINE LOCKED FOR A SHOWER, NO LEAKING OR INFILTRATION NOTED. IV DRESSING IS INTACT. PATIENT REPORTS 1/10 PAIN IN HER LOWER ABDOMEN. PATIENT HAS ACTIVE BOWEL TONES WITH NO REPORTED DISTENTION OR TENDERNESS. PATIENT CONTINUES TO HAVE CLARICE DRAIN IN HER LLQ OF ABDOMEN. CLARICE DRAIN DRESSING HAS A QUARTER-SIZED AMOUNT OF SANGUINEOUS DRAINAGE ON DRESSING. DRESSING IS INTACT. HER MIDLINE INCISION HAS STERI STRIPS WITH BRUISING ON THE TOP AND BOTTOM OF INCISION. PATIENT REQUESTING TO SHOWER, GUANAKITO ALMANZAR ASKED TO STAY IN ROOM WITH HER WHILE SHE SHOWERS. CALL LIGHT AND PERSONAL BELONGINGS ARE WITHIN REACH.
--- NOTE | 2025-01-30 14:54 | NUR ---
PT WAS D/C IV LOCKED SO THE MANIFOLD OPERATOR PREPARED THE BATHROOM FOR A SHOWER, PT SHOWERED INDEPENDENTLY. IV SITE AND CLARICE DRAIN WAS TAPED AND COVERED. PT WAS REMINDED TO LET THE WATER RUN OVER THE DRAIN AND ANY INCISION SITES, REMINDED NO RUBBING. BED LINENS WERE CHANGED WHEN PT WAS IN THE SHOWER. PT GIVEN CLEAN HOSP. GOWN TO DRESS IN AFTER SHOWER. CALL LIGHT WITHIN REACH AND FRESH ICE WATER WAS GIVEN. ROOM CLEANED, AREA STRAIGHTENED. BED LOWERED AND LOCKED, NOTHING ELSE NEEDED AT THIS TIME.
--- NOTE | 2025-01-30 15:30 | NUR ---
PATIENT IS LYING IN BED WITH HOB ELEVATED. PATIENT HAS TWO VISITORS IN THE ROOM AT THIS TIME. IV SITE FLUSHED WITH 10ML NS AND RECONNECTED TO IV FLUIDS. PAITIENT DENIED BURNING WITH FLUSHING, THERE WERE NO SIGNS OF LEAKING OR INFILTRATION. PATIENT STATES NAUSEA AND PAIN ARE MANAGEABLE. SHE REPORTED HER PAIN AND NAUSEA BEING WORSE WHILE AMBULATING AND SHOWERING. PATIENT DENIED HEADACHE. PATIENT IS NOT REQUESTING PAIN MEDICATIONS AT THIS TIME. CALL LIGHT AND PERSONAL BELONGINGS ARE WITHIN REACH. PATIENT DENIES FURTHER NEEDS AT THIS TIME.
--- NOTE | 2025-01-30 16:01 | NUR ---
PATIENT IS LYING IN BED WITH HOB ELEVTATED. PATIENT HAS IV FLUIDS INFUSING. PATIENT HAS TWO VISITORS AT BEDSIDE. PATIENT DENIES FURTHER NEEDS AT THIS TIME. PATIENT EXPRESSES SHE WILL CALL IF SHE NEEDS ANYTHING. CALL LIGHT AND PERSONAL BELONGINGS ARE WITHIN REACH.
[2025-01-30] MEDS ORDERED: MENTHOL/CETYLPYRD CL 1 LOZ LOZENGE PO PRN (17:00)
--- NOTE | 2025-01-30 17:01 | NUR ---
PATIENT IS LYNG IN BED WITH HOB ELEVATED. PATIENT IS CONVERSING WITH THE TWO VISITORS IN THE ROOM AT THIS TIME. CALL LIGHT AND PERSONAL BELONGINGS ARE WITHIN REACH.
--- NOTE | 2025-01-30 17:42 | PATH ---
[facility] [address] [place], [place] [address] Signed SPECIMEN(S): A SIGMOID AND RECTUM SPECIMEN(S): B RECTAL MARGIN SPECIMEN SOURCE: A. SIGMOID AND RECTUM B. RECTAL MARGIN CLINICAL HISTORY: Mid rectal adenocarcinoma. FINAL PATHOLOGIC DIAGNOSIS: A. Sigmoid and rectum: - Invasive moderately differentiated adenocarcinoma. - Metastatic tumor and 15 of 21 lymph nodes (15/21). - Incidental subserosal endometriosis. - See checklist. B. Rectal margin: - Benign colonic mucosa, negative for evidence of malignancy. COLON AND RECTUM: Resection Applies To: And B. SPECIMEN Procedure: Sigmoidectomy Macroscopic Evaluation of Mesorectum: Complete TUMOR Tumor Site: Rectum Histologic Type: Adenocarcinoma Histologic Grade: G2, moderately differentiated Tumor Size: Greatest dimension (Centimeters) - 2.9 x 2.4 x 0.7 cm Tumor Extent: Invades through muscularis propria into the pericolonic or perirectal tissue Macroscopic Tumor Perforation: Not identified Lymphatic and / or Vascular Invasion: Small vessel Perineural Invasion: Not identified Number of Tumor Buds: 10 per 'hotspot' field Tumor Budding Score: High (10 or more) Type of Polyp in which Invasive Carcinoma Arose: None identified Treatment Effect: No known presurgical therapy MARGINS Margin Status for Invasive Carcinoma: All margins negative for invasive PATIENT NAME: MCKAYLA BOWSER PATHOLOGY DATE OF : 74 REPORT #: [id number] PHYSICIAN: PABLO PATHOLOGY PCP: RITO FOLEY MD REPORT IS CONFIDENTIAL AND NOT TO BE RELEASED WITHOUT AUTHORIZATION [facility] [address] [place], [place] [address] Signed carcinoma Distance from Invasive Carcinoma to Radial (Circumferential) Margin: 2.2 cm Margin Status for Non-Invasive Tumor: Not applicable REGIONAL LYMPH NODES Regional Lymph Node Status: Tumor present in regional lymph node(s) Number of Lymph Nodes with Tumor: 15 Number of Lymph Nodes Examined: 21 Tumor Deposits: Not identified pTNM CLASSIFICATION (AJCC 8th Edition) pT Category: pT3 pN Category: pN2b COMMENT: As part of the [facility] quality assurance supervisor body program the case has been reviewed by second pathologist (MARILYN). JVR MICROSCOPIC EXAMINATION: Histologic sections of all submitted blocks are examined by light microscopy. These findings, together with the gross examination, support the pathologic diagnosis. GROSS DESCRIPTION: A. The specimen, labeled and designated "Katey Bowser, " and designated on the requisition "sigmoid and rectum," is received in formalin and consists of previously opened segment of large bowel that is 15.2 cm in length and has an internal circumference that ranges from 3.5 cm at the proximal resection margin up to 5.5 cm at the distal resection margin. The distal aspect displays a navarrete-black tattoo dye discoloration. The serosal surface is pink-caballero and smooth areas of puckering and adherent membranous tissue at the distal one third of the colon. The serosal surface is inked blue and this area and the intact mesorectum is inked black. The mucosal surface is pink-caballero and finely granular with a 2.9 x 2.4 x 0.7 cm pink centrally ulcerated mass with heaped up edges that is 0.8 cm from the distal resection margin, 13.2 cm from the proximal resection margin, and 9.4 cm from the vascular root resection margin. Adjacent to the mass is a 1.5 x 0.2 x 0.2 cm metallic mal adherent at one aspect. Sectioning through the mass reveals a firm adherent to the underlying muscularis propria. Involvement of the adjacent pericolonic adipose tissue is not grossly identified. The mass is PATIENT NAME: MCKAYLA BOWSER PATHOLOGY DATE OF : 74 REPORT #: [id number] PHYSICIAN: PABLO SANCHEZ PCP: RITO FOLEY MD REPORT IS CONFIDENTIAL AND NOT TO BE RELEASED WITHOUT AUTHORIZATION [facility] [address] [place] [id number] Signed 1.3 cm from the blue inked serosal surface and 2.2 cm from the radial resection margin. The uninvolved mucosa is yellow-caballero and finely granular. The bowel wall has an average thickness of 0.7 cm. Upon dissection of the attached pericolonic adipose tissue multiple lymph nodes are grossly identified. Battery Checker sections are submitted in 14 cassettes. Cassette Summary: (A1) proximal resection margin, shave (A2) distal resection margin, shave (A3) vascular root resection margin, shave (A4) closest radial resection margin, perpendicular (A5-A6) mass to serosa at area of puckering (A7) mass to adjacent pericolonic adipose tissue (A8) mass to uninvolved bowel wall (A9) six possible lymph nodes, submitted whole (A10) one possible lymph node, bisected (A11) one possible lymph node, trisected (A12) one possible lymph node, bisected (A13) six possible lymph nodes, submitted whole (A14) six possible lymph nodes, submitted whole B. The specimen, labeled and designated "Katey Bowser, " and designated on the requisition "rectal margin," is received in formalin and consists of 3.1 x 2.5 x 0.9 cm toroidal portion of bowel wall that has a naavrrete-black tattoo dye discoloration. The mucosal surface is yellow-caballero and finely granular. The specimen is inked, sectioned, and entirely submitted in cassettes B1-B3. FB (under the direct supervision of a pathologist) The Gross Description was prepared using a voice recognition system. The report was reviewed for accuracy; however, sound-alike word errors, addition and/or deletions may occur. If there is any question about this report, please contact Client Services. ADDITIONAL NOTES: Immunohistochemical and/or in situ hybridization studies if performed in this case included appropriate positive controls that reacted as expected. This test was developed and its performance characteristics determined by [facility]. It has not been cleared or approved by the U.S. Food and Drug Administration. The FDA has determined that such clearance or approval is not necessary. This test is used for clinical purposes. It should not be regarded as investigational or for research. [facility] is certified under the PATIENT NAME: MCKAYLA BOWSER PATHOLOGY DATE OF : 74 REPORT #: [id number] PHYSICIAN: PABLO SANCHEZ PCP: RITO FOLEY MD REPORT IS CONFIDENTIAL AND NOT TO BE RELEASED WITHOUT AUTHORIZATION [address] [address] Signed Clinical Laboratory Improvement Amendments of 1988 (CLIA) as qualified to perform high complexity clinical laboratory testing. PERFORMING LABORATORY: Technical component was performed by [facility], [address] [place] [id number] (CLIA# [id number]). Professional interpretation was performed by [facility] - [address] [place] [address] (CLIA#: [id number]). Diagnostician: Asher Hou MD Pathologist Electronically Signed 01/30/2025 Copies: ~ PATIENT NAME: MCKAYLA BOWSER ANN PATHOLOGY DATE OF : 74 REPORT #: [id number] PHYSICIAN: PABLO SANCHEZ PCP: RITO FOLEY MD REPORT IS CONFIDENTIAL AND NOT TO BE RELEASED WITHOUT AUTHORIZATION
--- NOTE | 2025-01-30 18:12 | NUR ---
PATIENT IS AMBULATING IN THE HALLWAY INDEPENDENTLY AT THIS TIME. PATIENT TOLERATING WELL.
--- NOTE | 2025-01-30 19:05 | NUR ---
REPORT RECEIVED FROM EDMUND HAYDEN. pt RESTING IN THE BED. BOARD UPDATED. pt DENIES ANY OTHER NEEDS AT THIS TIME. CALL LIGHT WITHIN REACH.
--- NOTE | 2025-01-30 20:15 | NUR ---
ASSESSMENT AND VITAL SIGNS DONE. MIDLINE CDI WITH STERI STRIPS. CLARICE DRAIN HAS MINIMAL DRAINAGE IN IT. DRAINAGE AROUND CLARICE TUBING IS SS AND EXPECTED. SCHEDULED MEDS ADMINISTERED. pt DENIES ANY OTHER NEEDS AT THIS TIME. CALL LIGHT WITHIN REACH.
--- NOTE | 2025-01-30 23:20 | NUR ---
pt RESTING IN THE BED. pt DENIES ANY OTHER NEEDS AT THIS TIME. CALL LIGHT WITHIN REACH. IVF INFUSING PER ORDER. IV ASSESSED, WNL.
--- NOTE | 2025-01-31 00:30 | NUR ---
IN RM pt CALLED FOR AN ALARMING IV. NEW BAG OF IVF INFUSING PER ORDER. pt DENIES ANY OTHER NEEDS AT THIS TIME. CALL LIGHT WITHIN REACH.
--- NOTE | 2025-01-31 01:50 | NUR ---
pt RESTING IN THE BED WITH EYES CLOSED. RR EVEN AND UNLABORED. CALL LIGHT WITHIN REACH.
--- NOTE | 2025-01-31 03:36 | NUR ---
pt UP TO THE BR. pt INDEPENDENT IN THE RM. NO OTHER NEEDS AT THIS TIME. CALL LIGHT WITHIN REACH.
[2025-01-31 05:23] VITALS: BP 109/50
[2025-01-31 05:57] VITALS: BP 109/50
--- NOTE | 2025-01-31 05:58 | NUR ---
pt RESTING IN THE BED. pt GOT UP TO THE BR AND HAD A BM. pt DENIES ANY NEEDS FOR PAIN MEDS AT THIS TIME. pt DENIES ANY OTHER NEEDS AT THIS TIME. CALL LIGHT WITHIN REACH. CLARICE DRAIN EMPTIED.
--- NOTE | 2025-01-31 07:07 | NUR ---
REPORT RECEIVED FROM SURGICAL SCRUB TECHNICIAN RN MALIK. PATIENT IS LYING IN BED WITH THE LIGHT OFF. PATIENT WITH EYES OPEN AND RESPIRATIONS ARE EVEN AND UNLABORED. PATIENT STATED NO NEEDS AT THIS TIME. CALL LIGHT AND PERSONAL BELONGINGS ARE WITHIN REACH.
--- NOTE | 2025-01-31 08:35 | NUR ---
PATIENT IS LYING IN BED WITH HOB ELEVATED. IV FLUIDS CONTINUING TO INFUSE. TRAY IS AT THE BEDSIDE. MORNING MEDICATIONS ADMINISTERED AND TOLERATED WELL. PATIENT REPORTS 5/10 ABDOMEN PAIN, SCHEDULED PAIN MEDICATIONS ADMINISTERED. PATIENT REPORTS HAVING A COUGH DROP BROUGHT IN BY A FAMILY MEMEMBER. CALL LIGHT AND PERSONAL BELONGINGS ARE WITHIN REACH. PATIENT DENIES FURTHER NEEDS AT THIS TIME.
--- NOTE | 2025-01-31 08:46 | NUR ---
PATIENT IS SITTING UP IN BED FOR BREAKFAST. THE CURTAINS WERE OPENED FOR NATURAL LIGHT IN THE ROOM. NO OTHER CARES WERE REQUESTED.
[2025-01-31 09:04] VITALS: BP 111/50
[2025-01-31 09:05] VITALS: BP 111/50
--- NOTE | 2025-01-31 09:21 | NUR ---
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s ARE COMPLETE AND DOCUMENTED IN THE CHART. CALL LIGHT AND PERSONAL BELONGINGS ARE WITHIN REACH. PATIENT'S ICE WATER REFILLED PER REQUEST. PATIENT DENIES FURTHER NEEDS AT THIS TIME.
--- NOTE | 2025-01-31 10:17 | NUR ---
PATIENT IS LYING IN BED WITH HOB ELEVATED. PATIENT WITH EYES OPEN AND RESPIRATIONS ARE EVEN AND UNLABORED. PATIENT IS ON HER PHONE. LR IS INFUSING AT 85 ML/HR. PATIENT STATED NO FURTHER NEEDS AT THIS TIME. CALL LIGHT AND PERSONAL BELONGINGS ARE WITHIN REACH.
--- NOTE | 2025-01-31 11:08 | NUR ---
PATIENT IS LYING IN BED WITH HOB ELEVATED. PATIENT IS SPEAKING WITH TWO VISITORS AT THE BEDSIDE. FRESH ICE WATER PROVIDED PER PATIENT REQUEST. IV FLIDS CONTINUING TO INFUSE. PATIENT DENIES FURTHER NEEDS AT THIS TIME. CALL LIGHT AND PERSONAL BELONGINGS ARE WITHIN REACH.
--- NOTE | 2025-01-31 12:12 | NUR ---
PATIENT IS LYING IN BED WITH HOB ELEVATED. DR. Castro IN REMOVING NEEMA DRAIN. PATIENT IS NOT REPORTING PAIN OR NAUSEA. IV FLUIDS CONTINUE TO INFUSE. PATIENT DENIES FURTHER NEEDS AT THIS TIME. CALL LIGHT AND PERSONAL BELONGINGS ARE WITHIN REACH.
[2025-01-31] MEDS ORDERED: IBUPROFEN600 MG PO (12:17)
[2025-01-31] MEDS ORDERED: ACETAMINOPHEN500 MG PO (12:17)
[2025-01-31 13:25] VITALS: BP 118/55
--- NOTE | 2025-02-02 09:26 | DS ---
[facility] [address] [place], [place] [address] Signed ADMISSION DATE: 01/27/2025 DISCHARGE DATE: 01/31/2025 REASON FOR ADMISSION: Mid rectal cancer for low anterior resection. HISTORY OF PRESENT ILLNESS: This 54-year-old white woman is a patient of Dr. Rito Graves, underwent colon cancer screening by me several weeks ago and was found to have several polyps of the colon, but more importantly an obvious rectal carcinoma approximately 10 cm from the anal verge. Clinically, this was at the limit of the index finger examination. A preoperative CEA is elevated at 7.0. CT scan shows no sign of regional or distant metastatic disease. An MRI shows no peripelvic fat with suspicious lymph nodes. Under the circumstances of her situation, a primary low anterior resection without neoadjuvant chemoradiation therapy has been recommended. Microsatellite instability testing is normal. The patient is admitted to undergo a low anterior resection of the rectal cancer. PHYSICAL EXAMINATION: GENERAL: An obese white woman, who looks to be in no distress. VISTA SIGNS: Weight is 84 kg. BMI 29.9. NECK: Trachea is midline. CHEST: Clear. HEART: Regular without murmur. ABDOMEN: Soft. Easily palpated. There is no sign of ascites or mass. Abdominal obesity is noted. EXTREMITIES: No clubbing, cyanosis, or edema. HOSPITAL COURSE: On January 27, 2025, she underwent rigid proctoscopy confirming the lesion to be approximately 8-10 cm from the anal verge. A hemoclip that had been applied to micheal the lesion was still present. She then underwent low anterior resection through a midline incision just above and well below the umbilicus. A side-to-end hand-sewn coloproctostomy was undertaken. There was no evidence of metastatic disease within the abdominal cavity and the liver was palpably and clinically normal. There was surgical absence of the uterus. Postoperatively, she was maintained with a pelvic drain and a Colin catheter for greater than 48 hours. She was begun on clear liquids the night of surgery and out of bed on the night of surgery and ambulating promptly. Her diet was advanced from clear liquid to full liquid once flatus and small bowel movement were noted and she was ultimately Electronically Signed By: ZURDO THAKKAR MD 02/02/25 0926 PATIENT NAME: MCKAYLA GARCIA DISCHARGE SUMMARY DATE OF : 74 REPORT #: [id number] PHYSICIAN: ZURDO THAKKAR MD PCP: RITO GRAVES MD REPORT IS CONFIDENTIAL AND NOT TO BE RELEASED WITHOUT AUTHORIZATION [facility] [address] [place], [place] [address] Signed advanced to a regular diet. By day of discharge, she is ambulating well, tolerating a regular diet, has minimal incisional pain, well managed by non opiate medication and the drain has been removed. Final pathology is still pending. FOLLOWUP PLAN: She is return to see me in approximately a month. She will call on Sunday to set up an appointment. She should lift no more than 20 pounds for the first four weeks. She should walk on a daily basis. DISCHARGE MEDICATIONS: 1. Ibuprofen 600 mg p.o. q.6 hours p.r.n. pain, #60, refill one. 2. Tylenol 500 mg two tablets p.o. q.6 hours p.r.n. pain, #60, refill one. 3. She will continue usual medications of estradiol 0.0375 mg per 24-hour patch. 4. Valacyclovir (Valtrex) 1000 mg p.o. b.i.d. p.r.n. cold sore. 5. Clobetasol propionate apply topically twice a week as needed. 6. Fexofenadine (Adrianne) 180 mg p.o. daily. 7. Zithromax (Z-Geo) as directed. DISCHARGE DIAGNOSES: 1. Low to mid rectal cancer, status post low anterior resection with primary anastomosis. Final pathology pending. 2. History of herpes simplex (cold sores). 3. Obesity. 4. History of open appendectomy. 5. History of hysterectomy without ovariectomy. MD MARISA Aj/MODL /[id number] cc: Rito Graves MD Electronically Signed By: ZURDO THAKKAR MD 02/02/25 0926 PATIENT NAME: MCKAYLA GARCIA DISCHARGE SUMMARY DATE OF : 74 REPORT #: [id number] PHYSICIAN: ZURDO HTAKKAR MD PCP: RITO GRAVES MD REPORT IS CONFIDENTIAL AND NOT TO BE RELEASED WITHOUT AUTHORIZATION [address] [address] Signed Copies: RITO GRAVES MD ~ Electronically Signed By: ZURDO THAKKAR MD 02/02/25 0926 PATIENT NAME: MCKAYLA GARCIA ANN DISCHARGE SUMMARY DATE OF : 74 REPORT #: [id number] PHYSICIAN: ZURDO THAKKAR MD PCP: RITO GRAVES MD REPORT IS CONFIDENTIAL AND NOT TO BE RELEASED WITHOUT AUTHORIZATION
== END 2025-01-31 13:32 | disposition home or self-care (01) | DRG 330 ==
LOC: DSVR 01-27 07:19 → MS 01-27 07:30
PROVIDERS: ADMIT Surgery; ATTEND Surgery
PROC: 0D1N0ZP Bypass Sigmoid Colon to Rectum, Open Approach (ICD-10-PCS; principal; 2025-01-27 08:40)
PROC: 0DTN0ZZ Resection of Sigmoid Colon, Open Approach (ICD-10-PCS; 2025-01-27 08:40)
DX: C20 Malignant neoplasm of rectum (principal); C77.9 Secondary and unspecified malignant neoplasm of lymph node, unspecified; E66.9 Obesity, unspecified; I95.9 Hypotension, unspecified; Z88.8 Allergy status to other drugs, medicaments and biological substances; Z90.710 Acquired absence of both cervix and uterus; N80.00 Endometriosis of the uterus, unspecified; Z68.29 Body mass index [BMI] 29.0-29.9, adult
CPT/HCPCS: 00811; 36415; 76942; 80053; 85025; 85060; 94762; A9270; J0131; J0690; J1100; J1171; J1644; J1790; J1885; J2003; J2270; J2405; J2704; J2795; J3010; J3475; J3490; J7121

== ENCOUNTER 2025-02-19 05:53 | Day surgery (SDC) | payer OTHER ==
[~2025-02-19] VITALS: Ht 167.6 cm; Wt 83.9 kg
--- NOTE | ~2025-02-19 | OR ---
[facility] [address], [place] [address] Draft DATE OF OPERATION: 02/19/2025 SURGEON: Zurdo Thakkar MD PREOPERATIVE DIAGNOSIS: Rectal cancer with 15/22 positive perirectal lymph nodes. POSTOPERATIVE DIAGNOSIS: Rectal cancer with 15/22 positive perirectal lymph nodes. PROCEDURES: 1. Right ultrasound-guided venous access jugular vein. 2. Placement of right internal jugular Bard port catheter placement. 3. Surgeon-directed fluoroscopy. ANESTHESIA: Local with monitored anesthesia care, Johanna Emanuel CRNA including propofol infusion and local anesthetic, Marcaine 0.25% with epinephrine 14 mL. INDICATION: This 54-year-old white woman is a patient of Dr. Graves. On screening colonoscopy, she was found to have several polyps in the colon and a rectal cancer in the mid to lower rectum. Preoperative imaging including CT and MRI demonstrated no perirectal lymphadenopathy and she proceeded to low anterior resection with primary anastomosis recently. She tolerated procedure well. The postoperative pathology confirmed 15/22 lymph nodes positive for metastatic disease. She has seen Dr. Doug Love anticipating postoperative chemotherapy. She would benefit from a Port-A-Cath device. I discussed this with her this morning in the presence of her . We reviewed the risk of bleeding, infection, malposition of the catheter, shearing of the catheter, pneumothorax, and other unforeseen complications. She understands and wished to proceed with it. FINDINGS: Conventional anatomy was noted of the right internal jugular vein. Easy access of the vein was accomplished under fluoroscopic control. A flexible J-wire was passed appropriately and confirmed with fluoroscopy. Completion of the procedure was without problem. Completion angiogram of the system showed no kinks or other abnormality and good function of catheter is noted at conclusion of procedure. DESCRIPTION OF PROCEDURE: PATIENT NAME: MCKAYLA GARCIA OPERATIVE REPORT DATE OF : 74 REPORT #: [id number] PHYSICIAN: ZURDO THAKKAR MD PCP: RITO GRAVES MD REPORT IS CONFIDENTIAL AND NOT TO BE RELEASED WITHOUT AUTHORIZATION [facility] [address], [place] [address] Draft The patient was brought to the operating room, given intravenous sedation by the material handling technician. Sequential compression device stockings were used. Arms were placed at the side and secured with appropriate padding. The neck and upper chest was prepared with a chlorhexidine solution and draped sterilely. Using the Localsensor ultrasound device, the right internal jugular vein was easily identified as was the carotid artery and other surrounding structures. Local anesthesia was injected over this area and under direct visualization with the Seldinger technique, the right internal jugular vein was easily accessed showing dark nonpulsatile blood. A flexible J-wire was passed down the needle. There was some ectopy and the wire was withdrawn. Fluoroscopy was used to confirm the position of the wire in the right heart system. Local anesthesia was injected transversely over the right pectoral muscle somewhat inferior to the right clavicle. A transverse incision was made using electrocautery. The subcutaneous tissue was divided down to the pectoralis fascia. A pocket was created inferiorly. Attention was returned to the right neck area. Using an 11 blade, the puncture site from which the wire emanating was incised with an 11 blade. A dilator was passed over the wire followed by the dilator and peel-away sheath introducer from the Bard port implantable port kit device. The wire and dilator were removed showing vigorous nonpulsatile retrograde bleeding. Previously inspected and irrigated Bard port Groshong catheter was passed down the introducer as far as possible. The peel-away introducer was removed carefully stabilizing the catheter as this was being performed. Aspiration on the catheter showed dark nonpulsatile blood. Fluoroscopy was then once again used and with a small amount of intravenous contrast, the catheter withdrawn and positioned to the atriocaval junction. The table had previously been in a Trendelenburg position, but at this point a flat position was used so as to not distort the anatomy of the catheter in relation to the surrounding structures. The catheter was flushed with heparinized saline. Using the tunneling device through the neck small incision, it was passed to the port site. The catheter applied to the tunneling device and the catheter withdrawn through the subcutaneous tissue to the port itself. Not mentioned previously was the partial securing of the port device to the pectoralis fascia upon formation of the pocket. The catheter was trimmed to the appropriate length and the collar applied in the appropriate orientation and secured to the port device without problem. The port was secured to the pectoralis fascia with the previously placed 2-0 Vicryl sutures. Access to the port with an angled Welsh needle allowed for easy withdrawal of blood and easy infusion of heparinized saline. Using contrast, the port position and pathway of the catheter was PATIENT NAME: MCKAYLA GARCIA OPERATIVE REPORT DATE OF : 74 REPORT #: [id number] PHYSICIAN: ZURDO THAKKAR MD PCP: RITO GRAVES MD REPORT IS CONFIDENTIAL AND NOT TO BE RELEASED WITHOUT AUTHORIZATION [address] [address] Draft affirmed on fluoroscopy showing no kinks or abnormalities. An additional securing suture to the inferior aspect of the port was used for three point fixation. The subcutaneous tissue was reapproximated with interrupted 2-0 Vicryl and skin closed with running subcuticular 3-0 Vicryl. Access to the port was once again undertaken with an angled Welsh needle and a small amount of contrast showing good function. The port was flushed with heparinized saline. Steri-Strips were applied over the neck incision after securing it with a 3-0 Vicryl and closure of the skin with 3-0 Vicryl. Steri-Strips were applied as was an Acticoat dressing. The patient was ultimately allowed to emerge from sedation and taken to recovery room in good condition having suffered no complication. Blood loss in total would be 20 mL or less. MD MARISA Aj/JAVANL /[id number] cc: MD Doug Thompson MD Copies: RITO GRAVES MD, ROBERT C MD ~ PATIENT NAME: MCKAYLA GARCIA OPERATIVE REPORT DATE OF : 74 REPORT #: [id number] PHYSICIAN: ZURDO THAKKAR MD PCP: RITO GRAVES MD REPORT IS CONFIDENTIAL AND NOT TO BE RELEASED WITHOUT AUTHORIZATION
[~2025-02-19 05:53] MED LIST changes: +ACETAMINOPHEN500 MG PO; +ALLEGRA ALLERG180 MG PO; +AZITHROMYCIN250 MG PO; +IBUPROFEN600 MG PO; +LACTATED RINGER'S 1,000 ML IV SCH
[2025-02-19 06:20] VITALS: BP 113/49
[2025-02-19] MEDS ORDERED: iopamidoL 30 ML VIAL ONE (06:24)
[2025-02-19] MEDS ORDERED: HEParin SOD (PORCINE) 5,000 UNIT/ML SDV ONE (06:24)
[2025-02-19] MEDS ORDERED: SODIUM CHLORIDE 0.9% 100 ML IV ONE (06:26)
[2025-02-19] MEDS ORDERED: IBLOOD GLUCOSE TEST STRIP 1 EA TEST VI PRN ×2 (07:00→07:30)
[2025-02-19] MEDS ORDERED: LIDOCAINE HCL 1% 5 ML SDV INJ ONE (07:00)
[2025-02-19] MEDS ORDERED: CEFAZOLIN SODIUM 2 GM/20 ML SYR IV SCH (07:00)
[2025-02-19] MEDS ORDERED: HEParin SOD (PORCINE) 5,000 UNIT/ML SDV SUB-Q SCH (07:00)
[2025-02-19] MEDS ORDERED: LIDOCAINE HCL 2% 5 ML SDV ONE (07:10)
[2025-02-19] MEDS ORDERED: propofoL 200 MG/20 ML VIAL ONE ×2 (07:10→07:13)
[2025-02-19] MEDS ORDERED: MIDAZOLAM HCL 2 MG/2 ML VIAL ONE (07:10)
[2025-02-19] MEDS ORDERED: KETOROLAC TROMETHAMINE 30 MG/ML VIAL ONE (07:11)
[2025-02-19] MEDS ORDERED: ondansetron HCL 4 MG/2 ML VIAL ONE (07:11)
[2025-02-19] MEDS ORDERED: fentaNYL citrate 100 MCG/2 ML VIAL ONE (07:11)
[2025-02-19] MEDS ORDERED: fentaNYL citrate 50 MCG/ML SDV IV PRN (07:30)
[2025-02-19] MEDS ORDERED: ondansetron HCL 4 MG/2 ML VIAL IV PRN (07:30)
[2025-02-19] MEDS ORDERED: NALOXONE HCL 0.4 MG SYR IV PRN ×2 (07:30→09:15)
[2025-02-19] MEDS ORDERED: droPERidol 5 MG/2 ML VIAL IV PRN (07:30)
--- NOTE | 2025-02-19 07:36 | NUR ---
VISITED DURING SPIRITUAL CARE ROUNDS. PT SUPPORTED BY SPOUSE IN ROOM. BOTH IN OVERALL GOOD SPIRITS, NO IMMEDIATE NEEDS. OPTIMIZATION ANALYST PROVIDED SUPPORTIVE PRESENCE, HOSPITALITY, PRAYER. PT AND SPOUSE EXPRESSED GRATITUDE, HOPE.
--- NOTE | 2025-02-19 08:49 | NUR ---
02/19/25 0849 Vonnie Robledo 2853-PATIENT ARRIVED TO PACU ON RA RR EVEN. PATIENT REACTIVE TO VERBAL STIMULI OPENING EYES. REMAINS VERY DROWSY DOZES BACK TO SLEEP. SR HR 80'S. IV SALINE LOCKED. DRESSING TO RIGHT CHEST INTACT. NECK STERI STRIPS INTACT.
[2025-02-19] MEDS ORDERED: OXYCODON-ACETA1 EAC2 PO (09:09)
[2025-02-19] MEDS ORDERED: IBUPROFEN 600 MG TAB PO PRN (09:15)
[2025-02-19] MEDS ORDERED: OXYCODONE/APAP 7.5/325 TAB PO PRN (09:15)
[2025-02-19] MEDS ORDERED: LACTATED RINGER'S 1,000 ML IV SCH (09:15)
[2025-02-19] MEDS ORDERED: ACETAMINOPHEN 500 MG TAB PO PRN (09:15)
[2025-02-19] MEDS ORDERED: LACTATED RINGER'S 1,000 ML IV ONE (09:44)
[2025-02-19 10:00] VITALS: BP 113/67
== END 2025-02-19 10:10 | disposition home or self-care (01) ==
LOC: DS 05:53
PROVIDERS: ATTEND Surgery
PROC: 05HM33Z Insertion of Infusion Device into Right Internal Jugular Vein, Percutaneous Approach (ICD-10-PCS; 2025-02-19)
PROC: B513YZA Fluoroscopy of Right Jugular Veins using Other Contrast, Guidance (ICD-10-PCS; 2025-02-19)
PROC: 0JH60WZ Insertion of Totally Implantable Vascular Access Device into Chest Subcutaneous Tissue and Fascia, Open Approach (ICD-10-PCS; principal; 2025-02-19 07:30)
DX: C20 Malignant neoplasm of rectum (principal); E66.9 Obesity, unspecified; Z68.29 Body mass index [BMI] 29.0-29.9, adult; Z90.49 Acquired absence of other specified parts of digestive tract; Z78.0 Asymptomatic menopausal state; Z88.1 Allergy status to other antibiotic agents; Z88.5 Allergy status to narcotic agent; Z79.899 Other long term (current) drug therapy
CPT/HCPCS: 71045; 77001; A9270; C1788; J0690; J1644; J1885; J2003; J2250; J2405; J2704; J3010; J7121

== ENCOUNTER 2025-03-31 05:53 | Day surgery (SDC) | payer OTHER ==
[~2025-03-31] VITALS: Ht 167.6 cm; Wt 82.7 kg
[~2025-03-31 05:53] MED LIST changes: +LORAZEPAM1 MG PO; +OXYCODON-ACETA1 EAC2 PO
[2025-03-31 06:12] VITALS: BP 122/76
[2025-03-31] MEDS ORDERED: IBLOOD GLUCOSE TEST STRIP 1 EA TEST VI PRN ×2 (07:00→08:15)
[2025-03-31] MEDS ORDERED: CEFAZOLIN SODIUM 2 GM/20 ML SYR IV SCH (07:00)
[2025-03-31] MEDS ORDERED: LIDOCAINE HCL 1% 5 ML SDV INJ ONE (07:00)
[2025-03-31] MEDS ORDERED: LIDOCAINE 1% W/ EPI 1:100,000 20 ML MDV ONE (07:11)
[2025-03-31] MEDS ORDERED: SODIUM CHLORIDE 0.9% 100 ML IV ONE (07:12)
[2025-03-31] MEDS ORDERED: HEParin SOD (PORCINE) 5,000 UNIT/ML SDV ONE (07:12)
--- NOTE | 2025-03-31 07:37 | NUR ---
VISITED DURING SPIRITUAL CARE ROUNDS. PT SUPPORTED BY BEAN SORTER IN ROOM. BOTH IN OVERALL GOOD SPIRITS; NO IMMEDIATE NEEDS. SECONDARY SCHO[employer] TEACHER LIBRARIAN PROVIDED SUPPORTIVE PRESENCE, HOSPITALITY, PRAYER. PT AND BEAN SORTER EXPRESSED SOFYA, GRATITUDE.
[2025-03-31] MEDS ORDERED: fentaNYL citrate 100 MCG/2 ML VIAL ONE (07:41)
[2025-03-31] MEDS ORDERED: MIDAZOLAM HCL 2 MG/2 ML VIAL ONE (07:41)
[2025-03-31] MEDS ORDERED: LIDOCAINE HCL 2% 5 ML SDV ONE (07:41)
[2025-03-31] MEDS ORDERED: NALOXONE HCL 0.4 MG SYR IV PRN ×2 (08:15→09:30)
[2025-03-31] MEDS ORDERED: fentaNYL citrate 50 MCG/ML SDV IV PRN (08:15)
[2025-03-31] MEDS ORDERED: PROCHLORPERAZINE EDISYLATE 10 MG/2 ML VIAL IV PRN (08:15)
[2025-03-31] MEDS ORDERED: KETOROLAC TROMETHAMINE 30 MG/ML VIAL ONE (08:24)
--- NOTE | 2025-03-31 09:20 | NUR ---
03/31/[address] PRESENTS TO THE BEDSIDE AND IS SPEAKING WITH THE PATIENT. HER QUESTIONS ARE ANSWERED.
[2025-03-31] MEDS ORDERED: IBUPROFEN600 MG PO (09:29)
[2025-03-31] MEDS ORDERED: AMOX TR-K CLV1 EACH PO (09:29)
[2025-03-31] MEDS ORDERED: ACETAMINOPHEN500 MG PO (09:30)
[2025-03-31] MEDS ORDERED: AMOXICILLIN/CLAVULANATE K 500 MG TAB PO SCH (09:30)
[2025-03-31] MEDS ORDERED: IBUPROFEN 600 MG TAB PO PRN (09:30)
[2025-03-31] MEDS ORDERED: LACTATED RINGER'S 1,000 ML IV SCH (09:30)
[2025-03-31] MEDS ORDERED: ACETAMINOPHEN 500 MG TAB PO PRN (09:30)
[2025-03-31 09:46] VITALS: BP 107/69
--- NOTE | 2025-04-01 10:09 | OR ---
[facility] [address] [place], [place] [address] Signed DATE OF OPERATION: 03/31/2025 SURGEON: Zurdo Thakkar MD PREOPERATIVE DIAGNOSIS: 1. Rectal cancer, status post low anterior resection, stage III, ongoing chemotherapy. 2. Flipped Port-A-Cath. POSTOPERATIVE DIAGNOSES: 1. Flipped Port-A-Cath with inflammatory fluid in pocket. 2. Gram stain positive moderate white cells, negative for organisms. PROCEDURES: Revision of flipped Port-A-Cath and Gram stain and culture of port fluid. ANESTHESIA: Local with monitored anesthesia care, Johanna Emanuel CRNA including 1% lidocaine with epinephrine 3 mL. INDICATION: This 54-year-old white woman is a patient of Rito Graves MD and was diagnosed on screening colonoscopy with several proximal polyps and a mid to low rectal cancer. CT scan showed no evidence of metastatic disease. An MRI of the pelvis showed no evidence of regional adenopathy. She underwent low anterior resection with primary anastomosis, was found to have adenocarcinoma of the rectum, but with multiple pericolic lymph nodes involved. Chemotherapy was initiated after placement of a Port-A-Cath device. She has had two cycles of chemotherapy under the direction of Dr. Willis. I was called yesterday by her oncology nurse noting that the port that had been placed on the right side (an IJ port) had "flipped." The patient has had no dysfunction of the port prior to this port flipping and the skin shows no sign of erythema, tenderness, fluctuance, or any other abnormality. It clearly is flipped, however. On the basis of these findings, I have recommended port revision. The risk of bleeding, infection, need for a new Port-A-Cath device, and other unforeseen complications was reviewed with her. She understands and wished to proceed. FINDINGS: Upon entry to the pocket, there was inflammatory fluid. There was no elizabeth abscess per se. The port had a well-formed capsule, but the sutures had torn through the soft tissue, no doubt related to the inflammatory process itself. A stat Gram stain was Electronically Signed By: ZURDO THAKKAR MD 04/01/25 1009 PATIENT NAME: MCKAYLA GARCIA OPERATIVE REPORT DATE OF : 74 REPORT #: [id number] PHYSICIAN: ZURDO THAKKAR MD PCP: RITO GRAVES MD REPORT IS CONFIDENTIAL AND NOT TO BE RELEASED WITHOUT AUTHORIZATION [facility] [address], [place] [address] Signed obtained confirming moderate white cells, but no evidence of organisms. On that basis, the port was re-secured to the dense capsule with PDS suture, subcutaneous tissue reapproximated. Access of the port showed it to be functioning well including aspiration of blood and infusion of saline. DESCRIPTION OF PROCEDURE: The patient was brought to the operating room, placed in the supine position, given intravenous sedation. Preoperative antibiotic Ancef was given and sequential compression device stockings were used. The upper torso was prepared with a chlorhexidine solution and draped sterilely. Examination of the port site confirmed a flat appearance of the area of the port directly beneath the incision itself. The port could be manipulated into appropriate position; however, it was left in situ. 1% lidocaine with epinephrine was injected beneath the incision. An incision was made with a 15 blade and dissection carried through the dermis into the subcutaneous tissue. Upon entry to the capsule, inflammatory fluid was noted. Concern was maintained for possible infection on that basis and particularly since the port appeared to be unsecured to the well-formed capsule. Gram stain and cultures were obtained on a stat basis. Manipulation of the catheter and irrigation of the site showed no sign of actual purulence proper. Interrupted 2-0 PDS suture was used to secure the port in the appropriate position with multiple points extending through the well-formed capsule. Subcutaneous tissue was reapproximated with interrupted 2-0 Vicryl suture and the skin closed with a running subcuticular 3-0 Vicryl. Access to the port prior to closure showed it to be functioning perfectly well, aspirating blood and infusing heparinized saline without impediment. Steri-Strips were applied as was an Acticoat dressing. By this point, the Gram stain, which had been run stat did return showing moderate white cells, but no evidence of organisms. It is my suspicion that the ongoing chemotherapy has in some ways impaired wound healing in the port site, but that actual infection was unlikely as there were no organisms. There was no sign of local infection. No erythema or tenderness to the port site itself. Cultures will be obtained nevertheless of course. MD MARISA Aj/JAVANL /[id number] Electronically Signed By: ZURDO THAKKAR MD 04/01/25 1009 PATIENT NAME: MCKAYLA GRACIA OPERATIVE REPORT DATE OF : 74 REPORT #: [id number] PHYSICIAN: ZURDO THAKKAR MD PCP: RITO GRAVES MD REPORT IS CONFIDENTIAL AND NOT TO BE RELEASED WITHOUT AUTHORIZATION [facility] [address] [place], [place] [address] Signed cc: MD Rito Bustillo MD Copies: FRANCES WILLIS MD, RUSSELL BARR MD ~ Electronically Signed By: ZURDO THAKKAR MD 04/01/25 1009 PATIENT NAME: MCKAYLA GARCIA ANN OPERATIVE REPORT DATE OF : 74 REPORT #: [id number] PHYSICIAN: ZURDO THAKKAR MD PCP: RITO GRAVES MD REPORT IS CONFIDENTIAL AND NOT TO BE RELEASED WITHOUT AUTHORIZATION
== END 2025-03-31 09:57 | disposition home or self-care (01) ==
LOC: DS 05:53
PROVIDERS: ATTEND Surgery
PROC: 0JWT0XZ Revision of Tunneled Vascular Access Device in Trunk Subcutaneous Tissue and Fascia, Open Approach (ICD-10-PCS; principal; 2025-03-31 07:30)
DX: T82.524A Displacement of infusion catheter, initial encounter (principal); C20 Malignant neoplasm of rectum; C77.2 Secondary and unspecified malignant neoplasm of intra-abdominal lymph nodes; Z88.1 Allergy status to other antibiotic agents; Z88.5 Allergy status to narcotic agent; Z90.49 Acquired absence of other specified parts of digestive tract; Y81.3 Surgical instruments, materials and general- and plastic-surgery devices (including sutures) associated with adverse incidents
CPT/HCPCS: 00400; 87070; 87075; 87205; J1644; J1885; J2003; J2250; J2405; J2704; J3010; J7121

== ENCOUNTER 2025-04-16 11:00 | Day surgery (SDC) | payer OTHER ==
[~2025-04-16] VITALS: Ht 167.6 cm; Wt 84.1 kg
--- NOTE | ~2025-04-16 | OR ---
[facility] [address] [place], [place] [address] Draft DATE OF OPERATION: 04/16/2025 SURGEON: Zurdo Thakkar MD PREOPERATIVE DIAGNOSES: 1. Stage III rectal carcinoma, ongoing chemotherapy. 2. Morbid obesity. 3. History of possible infected right internal jugular Bard port catheter. POSTOPERATIVE DIAGNOSES: 1. Stage III rectal carcinoma, ongoing chemotherapy. 2. Morbid obesity. 3. History of possible infected right internal jugular Bard port catheter. PROCEDURES: 1. Left subclavian Bard port catheter placement. 2. Surgeon-directed fluoroscopy. ANESTHESIA: Local with monitored anesthesia care, Lulu Durham CRNA and Ha Diop CRNA and local 15 mL of 0.25% Marcaine with epinephrine. INDICATION: This 54-year-old white woman is a patient of Dr. Rito Graves. She underwent screening colonoscopy by pr and found to have a rectal cancer. She has since undergone a low anterior resection and subsequently placement of right subclavian Port-A-Cath device for chemotherapy as she had a number of lymph nodes positive for metastatic disease. Her right internal jugular approach Bard port catheter worked well for a month, but then was noted to be "flipped." On March 31, she underwent exploration anticipating revision of the catheter and was found to have inflammatory fluid within the subcutaneous space. The catheter was additionally flipped the course. Gram stain urgently obtained showed white cells in moderate amounts, but no bacteria. The catheter was secured to the pectoralis fascia, but further review confirmed high likelihood of infection considering she was relatively immunosuppressed having undergone two cycles of chemotherapy already. On that basis, it was explanted in the office setting the following day. Following that, she had a left arm PICC line catheter for which her chemotherapy regimen has not been interrupted. The right-sided wound cultures never did grow pathogens as it turns out, but more likely than not was still infected despite that. This wound has healed entirely. She is now here to undergo placement of a left subclavian Port-A-Cath device (Bard port catheter). She understands as does her PATIENT NAME: MCKAYLA GARCIA OPERATIVE REPORT DATE OF : 74 REPORT #: [id number] PHYSICIAN: ZURDO THAKKAR MD PCP: RITO GRAVES MD REPORT IS CONFIDENTIAL AND NOT TO BE RELEASED WITHOUT AUTHORIZATION [facility] [address] [place], [place] [address] Draft the risk of bleeding, infection, pneumothorax, difficulty with this catheter in someway, and other unforeseen complications. Understanding that, she wished to proceed. FINDINGS: Single pass access, the left subclavian vein was easily accessed showing dark nonpulsatile blood. The catheter was placed without problem with the tip located in the atriocaval junction. At conclusion, the catheter was highly functional, well positioned and without sign of problem. DESCRIPTION OF PROCEDURE: The patient was brought to the operating room, given intravenous sedation. In the mild Trendelenburg position with arms at the side, the upper torso was prepared with a chlorhexidine solution and draped sterilely. Preoperative antibiotic Ancef 2 g had been given. After sterile draping, 0.25% Marcaine with epinephrine was injected locally in the infraclavicular area. Not noted previously was drawing downward of the left breast to flatten the chest wall given her significant obesity. Access was taken a few centimeters inferior to the clavicle on that basis. Dark nonpulsatile blood was noted having accessed the left subclavian vein with the Seldinger technique and a flexible J-wire was passed down the needle. Fluoroscopy was used, which confirmed the wire to be in the right heart system. A spinal anesthetic was injected transversely over the upper aspect of the left chest and transverse incision made and dissection carried through the subcutaneous tissue with electrocautery. The pectoralis fascia was encountered and a pocket inferiorly was developed with blunt and electrocautery dissection. The site from which the wire emanating was incised with an 11 blade and the dilator and subsequently dilator and peel-away introducer passed over the wire. The dilator and wire were removed showing vigorous retrograde bleeding of nonpulsatile dark blood. The previously inspected Groshong catheter was passed down the peel-away introducer, stabilized and the peel-away introducer removed. Aspiration showed dark nonpulsatile blood and flushing with heparinized saline was accomplished without impediment. The patient was then placed in a neutral position and under fluoroscopic control, the catheter was withdrawn adjusting it to be at the atriocaval junction. It was again flushed with heparinized saline and had used radiopaque, Isopaque to fully visualize the catheter. The port device had been partially secured to the pectoralis fascia. The catheter was PATIENT NAME: MCKAYLA GARCIA OPERATIVE REPORT DATE OF : 74 REPORT #: [id number] PHYSICIAN: ZURDO THAKKAR MD PCP: RITO GRAVES MD REPORT IS CONFIDENTIAL AND NOT TO BE RELEASED WITHOUT AUTHORIZATION [address] [address] Draft delivered to the port site with the close tunneling device, trimmed to the appropriate length and collar applied to the port device per manufacture's instructions. The port was then secured to the pectoralis fascia with interrupted 2-0 Vicryl suture. Access to the port with an angled Welsh needle allowed for injection with contrast once again under fluoroscopic control, confirming the catheter to be in good position and with the port and its area in relation the clavicle to be without kink and/or other impediment. Aspiration showed nonpulsatile dark blood and the port was flushed with heparinized saline once again. The port was secured to the pectoralis fascia with three additional 2-0 Vicryl sutures. This was to avoid torsion or other problem. The wound was then closed with interrupted 2-0 Vicryl and a running subcuticular 3-0 Vicryl for the skin. Steri-Strips were applied as was Acticoat dressing. The puncture site in the neck was secured with a single interrupted 3-0 Vicryl and Steri-Strips as well. Blood loss was less than 10 mL in aggregate. Sponge, needle, and instrument counts reported as correct. In the recovery room, a portable chest x-ray showed optimal placement of the catheter in the atriocaval junction and without sign of abnormality of the catheter in any way. MD MARISA Aj/YENIFER /[id number] cc: MD Doug Thompson MD Copies: RITO GRAVES MD, ROBERT C MD ~ PATIENT NAME: MCKAYLA GARCIA OPERATIVE REPORT DATE OF : 74 REPORT #: [id number] PHYSICIAN: ZUROD THAKKAR MD PCP: RITO GRAVES MD REPORT IS CONFIDENTIAL AND NOT TO BE RELEASED WITHOUT AUTHORIZATION
[~2025-04-16 11:00] MED LIST changes: +AMOX TR-K CLV1 EACH PO; +CEFAZOLIN SODIUM 2 GM/20 ML SYR IV SCH; +HEParin SOD (PORCINE) 5,000 UNIT/ML SDV SUB-Q SCH; +IBLOOD GLUCOSE TEST STRIP 1 EA TEST VI PRN; +LIDOCAINE HCL 1% 5 ML SDV INJ ONE
[2025-04-16 11:06] VITALS: BP 128/76
--- NOTE | 2025-04-16 14:16 | NUR ---
1235- DISCUSSED PT WITH DR. THAKKAR. DR. THAKKAR WANTS PICC LINE TO BE REMOVED FOR PORTACATH PLACEMENT TODAY. VERBAL ORDER RECIEVED.
[2025-04-16] MEDS ORDERED: HEParin SOD (PORCINE) 5,000 UNIT/ML SDV ONE (14:30)
[2025-04-16] MEDS ORDERED: SODIUM CHLORIDE 0.9% 100 ML IV ONE (14:31)
--- NOTE | 2025-04-16 15:00 | NUR ---
1320- PT LAYING FLAT FACING AWAY FROM LEFT SIDED PICC. PICC LINE PULLED PER DR. THAKKAR. TIP INTACT. LIGHT PRESSURE PUT OVER ARM FOR 5 MINUTES. 1325- ANTIBIOTIC OINTMENT PUT OVER INSERTION SITE, GAUZE, OPSITE AND COBAND PUT IN PLACE FOR DRESSING. PT IS EDUCATED ON LEAVING THE DRESSING IN PLACE FOR 24 HOURS. PT IS UNDERSTANDING. PT TO LAY FLAT FOR NEXT 25 MINUTES.
[2025-04-16] MEDS ORDERED: ACETAMINOPHEN 1,000 MG/100 ML VIAL ONE (15:04)
[2025-04-16] MEDS ORDERED: fentaNYL citrate 50 MCG/ML SDV IV PRN (15:30)
[2025-04-16] MEDS ORDERED: NALOXONE HCL 0.4 MG SYR IV PRN ×2 (15:30→16:15)
[2025-04-16] MEDS ORDERED: PROCHLORPERAZINE EDISYLATE 10 MG/2 ML VIAL IV PRN (15:30)
[2025-04-16] MEDS ORDERED: HYDROmorphone HCL 1 MG/ML SYR IV PRN (15:30)
[2025-04-16] MEDS ORDERED: IBLOOD GLUCOSE TEST STRIP 1 EA TEST VI PRN (15:30)
[2025-04-16] MEDS ORDERED: LACTATED RINGER'S 1,000 ML IV ONE (15:31)
[2025-04-16] MEDS ORDERED: KETOROLAC TROMETHAMINE 30 MG/ML VIAL ONE (16:02)
[2025-04-16] MEDS ORDERED: SULFAMETHOXAZO1 EAC1 PO (16:05)
[2025-04-16] MEDS ORDERED: IBUPROFEN600 MG PO (16:05)
[2025-04-16] MEDS ORDERED: ACETAMINOPHEN500 MG PO (16:06)
[2025-04-16] MEDS ORDERED: OXYCODON-ACETA1 EAC2 PO (16:06)
--- NOTE | 2025-04-16 16:06 | NUR ---
04/16/25 1606 Elizabeth Au 1544-PT ARRIVES TO PACU, VIA STRETCHER, PT DROWSY BUT RESPONIVE, DENIES PAIN OR NAUSEA, VSS ON 6L VIA MASK, FRESH WARM BLANKETS GIVEN UPON REQUEST. 6215-DIRECTOR DIGITAL STRATEGY AT BEDSIDE FOR POST OP CXR TO CONFIRM PORTACATH PLACEMENT.
[2025-04-16] MEDS ORDERED: IBUPROFEN 600 MG TAB PO PRN (16:15)
[2025-04-16] MEDS ORDERED: ACETAMINOPHEN 500 MG TAB PO PRN (16:15)
[2025-04-16] MEDS ORDERED: OXYCODONE/APAP 7.5/325 TAB PO PRN (16:15)
[2025-04-16 17:03] VITALS: BP 113/83
[2025-04-16] MEDS ORDERED: TRIMETHOPRIM/SULFAMETHOXAZOLE 1 EA TAB PO SCH (21:00)
== END 2025-04-16 17:20 | disposition home or self-care (01) ==
LOC: DS 11:00
PROVIDERS: ATTEND Surgery
PROC: B517YZA Fluoroscopy of Left Subclavian Vein using Other Contrast, Guidance (ICD-10-PCS; 2025-04-16)
PROC: 05H633Z Insertion of Infusion Device into Left Subclavian Vein, Percutaneous Approach (ICD-10-PCS; principal; 2025-04-16 13:25)
DX: C20 Malignant neoplasm of rectum (principal); E66.01 Morbid (severe) obesity due to excess calories; K21.9 Gastro-esophageal reflux disease without esophagitis; G47.30 Sleep apnea, unspecified; Z88.1 Allergy status to other antibiotic agents; Z88.8 Allergy status to other drugs, medicaments and biological substances; Z88.5 Allergy status to narcotic agent; Z79.899 Other long term (current) drug therapy
CPT/HCPCS: 00532; 71045; 77001; C1788; J0131; J0690; J1644; J1885; J2405; J2704; J7121

== ENCOUNTER 2025-06-14 17:55 | Emergency (ER) | payer OTHER ==
[~2025-06-14] VITALS: Ht 167.6 cm; Wt 77.9 kg
[~2025-06-14 17:55] MED LIST changes: -CEFAZOLIN SODIUM 2 GM/20 ML SYR IV SCH; -HEParin SOD (PORCINE) 5,000 UNIT/ML SDV SUB-Q SCH; -IBLOOD GLUCOSE TEST STRIP 1 EA TEST VI PRN; -LACTATED RINGER'S 1,000 ML IV SCH; -LIDOCAINE HCL 1% 5 ML SDV INJ ONE; +SULFAMETHOXAZO1 EAC1 PO
[2025-06-14 18:34] LABS: BASOPHILS 0.9 % (0.1-1.2); EOSINOPHILS 2.0 % (0.7-5.8); LYMPHOCYTES 36.5 % (19.3-51.7); MCH 31.1 PG (25.6-32.2); MCHC 34.0 g/dL (32.2-35.5); MCV 91.4 fL (79.4-94.8); MONOCYTES 9.9 % (4.7-12.5); NEUTROPHILS 50.0 % (34.0-71.1); RBC 4.79 M/uL (3.93-5.22)
[2025-06-14 18:51] LABS: GLOMERULAR FILTRATION RATE,EST 104.0 mL/min (>60); UREA NITROGEN 9.0 mg/dL (7-18)
[2025-06-14 19:10] LABS: CORONAVIRUS COVID-19 AG NEGATIVE (NEGATIVE)
[2025-06-14 19:24] LABS: INR 1.03 (0.80-1.30); PROTIME 12.7 Sec (11.2-14.2)
[2025-06-14] MEDS ORDERED: KETOROLAC TROMETHAMINE 30 MG/ML VIAL IV ONE (19:30)
[2025-06-14 19:55] LABS: LACTIC ACID, BLOOD 0.9 mmol/L (0.4-2.0)
[2025-06-14] MEDS ORDERED: ONDANSETRON ODT8 MG PO (22:50)
[2025-06-14] MEDS ORDERED: PROMETHAZINE HC25 M1 PO (22:50)
[2025-06-14] MEDS ORDERED: PROMETHAZINE HCL 25 MG HOME.PACK PO ONE (23:00)
[2025-06-14] MEDS ORDERED: ONDANSETRON 4 MG HOME.PACK SL ONE (23:00)
[2025-06-14 23:10] VITALS: BP 107/75
== END 2025-06-14 23:12 | disposition home or self-care (01) ==
LOC: ED 17:55
PROVIDERS: Emergency Medicine; Family Medicine
DX: B34.9 Viral infection, unspecified (principal); Z88.5 Allergy status to narcotic agent; Z88.8 Allergy status to other drugs, medicaments and biological substances; Z79.899 Other long term (current) drug therapy; Z11.59 Encounter for screening for other viral diseases
CPT/HCPCS: 36415; 71045; 80048; 83605; 83735; 85025; 85610; 85730; 87040; 96374; 96375; 99283-25; A9270; J1885; J2405